=== PATIENT | female | born 2000 | race African-American/Black ===

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

== ENCOUNTER 2019-02-10 16:03 | Emergency (ER) | payer OTHER, SELFPAY ==
--- OUTSIDE RECORDS SUMMARY | 2019-02-10 16:04 | XMS REPORT ---
:2000 Author Organization [facility] Address [address] [place] [address] Dr. Motley [address] [place] [id number] Care Team Providers Name Role Phone Unavailable Unavailable Unavailable Problems This patient has no known problems. Allergies, Adverse Reactions, Alerts This patient has no known allergies or adverse reactions. Medications This patient has no known medications.
--- NOTE | 2019-02-10 16:46 | ER ---
Nurse's Notes [facility] Name: Danitza Noguera Age: 18 yrs Sex: Female : 2000 Arrival Date: 02/10/2019 Time: 16:04 Bed 14 Private MD: Diagnosis: Otitis externa Presentation: 02/10 16:14 Presenting complaint: Patient states: "A couple days ago I got water stuck in my ear aj1 and now it hurts to touch it." Reports pain and decreased hearing to right ear. Transition of care: patient was not received from another setting of care. Onset of symptoms was February 08, 2019. Risk Assessment: Do you want to hurt yourself or someone else? Patient reports no desire to harm self or others. Initial Sepsis Screen: Does the patient meet any 2 criteria? No. Patient's initial sepsis screen is negative. Does the patient have a suspected source of infection? No. Patient's initial sepsis screen is negative. Care prior to arrival: None. 16:14 Method Of Arrival: Ambulatory aj 16:14 Acuity: NORBERTO 4 aj1 Triage Assessment: 16:16 General: Appears in no apparent distress. comfortable, Behavior is calm, cooperative, aj1 appropriate for age. Pain: Complains of pain in right ear Pain currently is 9 out of 10 on a pain scale. EENT: Reports ear pain. Neuro: Level of Consciousness is awake, alert, obeys commands. Cardiovascular: Patient's skin is warm and dry. Respiratory: Airway is patent Respiratory effort is even, unlabored, Respiratory pattern is regular, symmetrical. 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 - Social history:: Smoking status: Patient/guardian denies using tobacco. - Ebola Screening: : Patient denies travel to an Ebola-affected area in the 21 days before illness onset. - Family history:: not pertinent. Screenin:43 Abuse screen: Denies threats or abuse. Denies injuries from another. Nutritional rv screening: No deficits noted. Tuberculosis screening: No symptoms or risk factors identified. Fall Risk None identified. Assessment: 16:40 General: Appears in no apparent distress. comfortable, Behavior is calm, cooperative. rv Pain: Complains of pain in right lower quadrant. Neuro: Level of Consciousness is awake, alert, obeys commands, Oriented to person, place, time, situation. Cardiovascular: Patient's skin is warm and dry. Respiratory: Airway is patent. GI: Abdomen is flat, Reports lower abdominal pain. : No signs and/or symptoms were reported regarding the genitourinary system. EENT: No signs and/or symptoms were reported regarding the EENT system. Derm: Skin is intact. Musculoskeletal: No signs and/or symptoms reported regarding the musculoskeletal system. 16:48 Reassessment: I agree with the above assessment. Bed in low, locked position. Call rb1 light within reach. 17:10 Reassessment: Patient appears in no apparent distress at this time. No changes from rb1 previously documented assessment. Vital Signs: 16:16 BP 122 / 75; Pulse 75; Resp 18; Temp 98.2; Pulse Ox 99% on R/A; Weight 99.79 kg (R); aj1 Height 5 ft. 5 in. (165.10 cm) (R); Pain 9/10; 17:15 BP 121 / 75; Pulse 72; Resp 16; Temp 98.2(O); Pulse Ox 100% on R/A; Pain 9/10; rb1 16:16 Body Mass Index 36.61 (99.79 kg, 165.10 cm) aj1 ED Course: 16:04 Patient arrived in ED. as 16:13 Goyo Amezcua MD is Attending Physician. bernardino 16:15 Triage completed. aj1 16:16 Arm band placed on Patient placed in an exam room. aj1 16:20 Luiz Ojeda RN is Primary Nurse. rv 16:43 Patient has correct armband on for positive identification. Placed in gown. Bed in low rv position. Call light in reach. Side rails up X 1. Adult w/ patient. Pulse ox on. NIBP on. 17:15 No provider procedures requiring assistance completed. Patient did not have IV access rb1 during this emergency room visit. Administered Medications: 17:04 Drug: Everson 10 mg-325 mg 1 tabs Route: PO; rb1 17:15 Follow up: Response: Medication administered at discharge. rb1 17:05 Drug: Bactrim (160 mg-800 mg (DS) 1 tablet Route: PO; rb1 17:15 Follow up: Response: Medication administered at discharge. rb1 Outcome: 16:46 Discharge ordered by . bernardino 17:15 Patient left the ED. rb1 17:15 Discharged to home ambulatory, with family. rb1 17:15 Condition: stable 17:15 Discharge instructions given to patient, Instructed on discharge instructions, follow up and referral plans. medication usage, Demonstrated understanding of instructions, follow-up care, medications, Prescriptions given X 3. Signatures: Tyra Watkins RN RN aj1 Goyo Amezcua MD MD cha Martinez, Amelia as Barber, Rebecca, RN RN rb1 Luiz Ojeda RN RN rv Corrections: (The following items were deleted from the chart) 17:28 17:26 Patient left the ED. rb1 rb1
--- NOTE | 2019-02-10 16:47 | EDPHYS ---
Physician Documentation [facility] Name: Danitza Noguera Age: 18 yrs Sex: Female : 2000 Arrival Date: 02/10/2019 Time: 16:04 Bed 14 Private MD: ED Physician Goyo Amezcua HPI: 02/10 16:41 This 18 yrs old Black Female presents to ER via Ambulatory with complaints of Ear Pain. bernardino 16:41 The patient presents with drainage, pain, swelling, tenderness. The complaints affect bernardino the right ear. Onset: The symptoms/episode began/occurred 3 day(s) ago. Modifying factors: The symptoms are alleviated by covering ear, the symptoms are aggravated by pulling on ears, touching. Associated signs and symptoms: The patient has no apparent associated signs or symptoms. Severity of symptoms: At their worst the symptoms were moderate in the emergency department the symptoms are unchanged. The patient has not experienced similar symptoms in the past. 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 - Social history:: Smoking status: Patient/guardian denies using tobacco. - Ebola Screening: : Patient denies travel to an Ebola-affected area in the 21 days before illness onset. - Family history:: not pertinent. ROS: 16:41 Constitutional: Negative for fever, chills, and weight loss, Eyes: Negative for injury, bernardino pain, redness, and discharge, Neck: Negative for injury, pain, and swelling, Cardiovascular: Negative for chest pain, palpitations, and edema, Respiratory: Negative for shortness of breath, cough, wheezing, and pleuritic chest pain, Abdomen/GI: Negative for abdominal pain, nausea, vomiting, diarrhea, and constipation, Back: Negative for injury and pain, : Negative for injury, bleeding, discharge, and swelling, MS/Extremity: Negative for injury and deformity, Skin: Negative for injury, rash, and discoloration, Neuro: Negative for headache, weakness, numbness, tingling, and seizure, Psych: Negative for depression, anxiety, suicide ideation, homicidal ideation, and hallucinations, Allergy/Immunology: Negative for hives, rash, and allergies, Endocrine: Negative for neck swelling, polydipsia, polyuria, polyphagia, and marked weight changes, Hematologic/Lymphatic: Negative for swollen nodes, abnormal bleeding, and unusual bruising. 16:41 ENT: Positive for ear pain. Exam: 16:41 Constitutional: This is a well developed, well nourished patient who is awake, alert, bernardino and in no acute distress. Head/Face: Normocephalic, atraumatic. Eyes: Pupils equal round and reactive to light, extra-ocular motions intact. Lids and lashes normal. Conjunctiva and sclera are non-icteric and not injected. Cornea within normal limits. Periorbital areas with no swelling, redness, or edema. Neck: Trachea midline, no thyromegaly or masses palpated, and no cervical lymphadenopathy. Supple, full range of motion without nuchal rigidity, or vertebral point tenderness. No Meningismus. Chest/axilla: Normal chest wall appearance and motion. Nontender with no deformity. No lesions are appreciated. Cardiovascular: Regular rate and rhythm with a normal S1 and S2. No gallops, murmurs, or rubs. Normal PMI, no JVD. No pulse deficits. Respiratory: Lungs have equal breath sounds bilaterally, clear to auscultation and percussion. No rales, rhonchi or wheezes noted. No increased work of breathing, no retractions or nasal flaring. Abdomen/GI: Soft, non-tender, with normal bowel sounds. No distension or tympany. No guarding or rebound. No evidence of tenderness throughout. Skin: Warm, dry with normal turgor. Normal color with no rashes, no lesions, and no evidence of cellulitis. MS/ Extremity: Pulses equal, no cyanosis. Neurovascular intact. Full, normal range of motion. Neuro: Awake and alert, GCS 15, oriented to person, place, time, and situation. Cranial nerves II-XII grossly intact. Motor strength 5/5 in all extremities. Sensory grossly intact. Cerebellar exam normal. Normal gait. Psych: Awake, alert, with orientation to person, place and time. Behavior, mood, and affect are within normal limits. 16:41 ENT: Ear canal(s): swelling, that is minimal, that is moderate, TM's: are normal. Vital Signs: 16:16 BP 122 / 75; Pulse 75; Resp 18; Temp 98.2; Pulse Ox 99% on R/A; Weight 99.79 kg (R); aj1 Height 5 ft. 5 in. (165.10 cm) (R); Pain 9/10; 17:15 BP 121 / 75; Pulse 72; Resp 16; Temp 98.2(O); Pulse Ox 100% on R/A; Pain 9/10; rb1 16:16 Body Mass Index 36.61 (99.79 kg, 165.10 cm) aj1 MDM: 16:29 Patient medically screened. bernardino 16:45 Data reviewed: vital signs, nurses notes. bernardino 17:35 ED course: ciprodex changed to cortisporin otic. snw Administered Medications: 17:04 Drug: Gillette 10 mg-325 mg 1 tabs Route: PO; rb1 17:15 Follow up: Response: Medication administered at discharge. rb1 17:05 Drug: Bactrim (160 mg-800 mg (DS) 1 tablet Route: PO; rb1 17:15 Follow up: Response: Medication administered at discharge. rb1 Disposition: 02/11 11:11 Co-signature as Attending Physician, Goyo Amezcua MD I agree with the assessment and [facility] plan of care. Disposition: 02/10/19 16:46 Discharged to Home. Impression: Otitis externa. - Condition is Stable. - Discharge Instructions: Otitis Externa, Otitis Externa, [id number]. - Prescriptions for Ciprodex 0.3- 0.1 % Otic drops,suspension - instill 4 drop by OTIC route every 12 hours for 7 days; 10 milliliter. Tylenol- Codeine #3 300-30 mg Oral Tablet - take 2 tablets by ORAL route every 6 hours As needed; 26 tablet. Bactrim DS 800- 160 mg Oral Tablet - take 1 tablet by ORAL route every 12 hours for 10 days; 20 tablet. - Medication Reconciliation Form, Thank You Letter, Antibiotic Education, Prescription Opioid Use, Work release form form. - Follow up: Private Physician; When: 2 - 3 days; Reason: Recheck today's complaints, Continuance of care, Re-evaluation by your physician. - Problem is new. - Symptoms have improved. Signatures: Tyra Watkins RN RN aj1 Goyo Amezcua MD MD cha Therrien, Shelly, SHOP CLERK-C SHOP CLERK-Csnw Molly Ramirez, RN RN rb1 Corrections: (The following items were deleted from the chart) 02/10 17:26 16:46 02/10/2019 16:46 Discharged to Home. Impression: Otitis externa. Condition is rb1 Stable. Forms are Medication Reconciliation Form, Thank You Letter, Antibiotic Education, Prescription Opioid Use. Follow up: Private Physician; When: 2 - 3 days; Reason: Recheck today's complaints, Continuance of care, Re-evaluation by your physician. Problem is new. Symptoms have improved. bernardino
[2019-02-10] MEDS ORDERED: HYDROCODONE/APAP 10/325 TAB ONE (17:12)
[2019-02-10] MEDS ORDERED: SMZ./TMP. 800/160 MG TABLET ONE (17:13)
[2019-02-10 17:33] VITALS: BP 122/75; TEMP 98.2; O2SAT 99
== END 2019-02-10 17:26 | disposition home or self-care (01) ==
LOC: ER 16:03
DX: H60.91 Unspecified otitis externa, right ear (principal)
CPT/HCPCS: 99283

== ENCOUNTER 2019-03-29 15:58 | Emergency (ER) | payer SELFPAY ==
--- OUTSIDE RECORDS SUMMARY | 2019-03-29 16:00 | XMS REPORT | Summary of Care ---
:2000 Author Organization [facility] Address [address] [place] [id number] Care Team Providers Name Role Phone Iram Green [facility] Primary Care Provider Breanne Joslyn L Insurance Hmo Reason for Visit Reason Comments NURSE VISIT Encounter Details Date Type Department Care Team Description 02/12/2019 [facility], [facility] [address] [place] [address] Need for HPV Emily [facility], [facility] [address] [place] [address] Allergies No Known Allergiesdocumented as of this encounter (statuses as of 02/12/2019) Medications Medication Sig Dispensed Refills Start Date End Date Status CITRANATAL 90 DHA, TAKE 1 TABLET AND 1 6 12/20/2017 Active ALGAL OIL, 90 mg CAPSULE BY MOUTH iron-1 mg -50 EVERY DAY mg-300 mg combo pack HYDROcodone-acetami Take 1 tablet by 20 tablet 0 04/04/2018 Active nophen 5-325 mg mouth every 6 (six) tablet hours as needed for Pain (scale 4-6) (If uncontrolled by Ibuprofen). Hospital, Clinic, or Other Ordered Dose Route Frequency Start Date End Date Status Facility Administered Medication medroxyPROGESTERone 150 mg IM [id number] 05/18/2018 04/19/2019 Active (DEPO-PROVERA) injection 150 mgIndications: control counseling documented as of this encounter (statuses as of 02/12/2019) Active Problems Patient Care Coordination Note iol 04-02-18 at 7pm Problem Noted Date Well woman exam 05/18/2018 Contraceptive management 05/18/2018 Obesity (BMI 30-39.9) 03/14/2018 Family history of ASD (atrial septal defect) 12/13/2017 documented as of this encounter (statuses as of 02/12/2019) Resolved Problems Problem Noted Date Resolved Date Routine follow-up 04/25/2018 05/18/2018 S/P 04/04/2018 05/18/2018 Examination of participant in clinical trial 04/04/2018 04/25/2018 Overview: PACt 40 weeks gestation of 04/02/2018 04/25/2018 GBS (group B streptococcus) infection 03/13/2018 04/02/2018 Overview: Address in labor and Delivery. Group B Streptococcus urinary tract infection affecting 01/26/2018 04/25/2018 in third trimester Sickle cell trait 12/16/2017 04/25/2018 Overweight (BMI 25.0-29.9) 12/13/2017 04/25/2018 Supervision of high risk , antepartum 12/13/2017 04/25/2018 Insufficient antepartum care 12/13/2017 04/25/2018 documented as of this encounter (statuses as of 02/12/2019) Immunizations Name Administration Dates Next Due HPV9 02/12/2019, 05/18/2018, 05/11/2018 (Deferred: Contraindication - vaccine not given ), 04/04/2018 Tdap 01/09/2018 documented as of this encounter Social History Tobacco Use Types Packs/Day Years Used Date Never Smoker Smokeless Tobacco: Never Used Alcohol Use Drinks/Week oz/Week Comments No Sex Assigned at Date Recorded Not on file Job Start Date Occupation Industry Not on file Not on file Not on file Travel History Travel Start Travel End No recent travel history available. documented as of this encounter Last Filed Vital Signs Vital Sign Reading Time Taken Comments Blood Pressure 116/70 02/12/2019 9:40 AM CDT Pulse 60 02/12/2019 9:40 AM CDT Temperature 37.2 C (98.9 F) 02/12/2019 9:40 AM CDT Respiratory Rate 18 02/12/2019 9:40 AM CDT Oxygen Saturation - - Inhaled Oxygen Concentration - - Weight 100 kg (220 lb 9 oz) 02/12/2019 9:40 AM CDT Height 165.1 cm (5' 5") 02/12/2019 9:40 AM CDT Body Mass Index 36.7 02/12/2019 9:40 AM CDT documented in this encounter Patient Instructions Patient InstructionsFranca Elder LVN - 02/12/2019 8:45 AM CDT Understanding Human Papillomavirus (HPV) Human papillomavirus (HPV) is a virus that causes warts. It can be hard to detect, so many people never even know they have it. Some strains (types) of HPV may cause warts on the hands, legs, or other parts of the body. These can spread from person to person. Other strains of HPV cause wartsin the genital area. Of these, a few strains can lead to cancer in the area where the uterus and vagina meet (the cervix) and the genitals, as well as some other places. Treating genital forms of HPV now can help prevent serious health problems in the future. How was I infected? HPV is passed from person to person through contact with infected skin. Everyone with HPV has a different experience. Some people notice genital warts ( condyloma) within a few months of exposure. In other people, warts take years to appear or may never appear. This makes it almost impossible to know when or by whom you were infected. How warts form HPV lives inside skin and mucous membrane (including in the mouth and vagina). The virus can make skin cells reproduce more often than they should. These extra skin cells build up into warts. 1. HPV invades the skin. 2. DNA from the virus enters skin cells. 3. HPV causes infected skin cells to multiply and form warts. 4. The virus sheds, allowing it to be passed to others. Date Last Reviewed: 07/18/201619994701-7055 The [employer]. [address] [place] [address], [place] [address]. All rights reserved. This information is not intended as a substitute for professional medical care. Always follow your healthcare professional's instructions. documented in this encounter Progress Notes Franca Elder LVN - 02/12/2019 8:45 AM CDTPt here for HPV #3 VIS given and reviewed with patient. Vaccine given to left deltoid via IM, pt tolerated well. The site was cleaned with alcohol and bandage was applied. Pt verbalized understanding. documented in this encounter Plan of Treatment Health Maintenance Due Date Last Done Comments PNEUMOCOCCAL 0-64 YEARS 10/07/2005 COMBINED SERIES (1 of 3 - PCV13) MENINGOCOCCAL B VACCINES (1 of 10/07/2009 2 - Risk Bexsero 2-dose series) HPV VACCINES (3 - Female 10/02/2018 05/18/2018, 3-dose series) 04/04/2018 INFLUENZA VACCINE 03/18/2019 CHLAMYDIA SCREENING 05/18/2019 05/18/2018, 03/09/2018, 12/13/2017 DTaP,Tdap,and Td Vaccines (2 - 01/10/2028 01/09/2018 Td) MENINGOCOCCAL VACCINE Aged Out No longer eligible based on patient's age to complete this topic documented as of this encounter Procedures Procedure Name Priority Date/Time Associated Diagnosis Comments GARDASIL 9 (HPV 9V) Routine 02/12/2019 9:46 AM Need for HPV VACCINE CDT vaccination documented in this encounter Results Not on filedocumented in this encounter Visit Diagnoses Diagnosis Need for HPV vaccination Need for prophylactic vaccination and inoculation against other viral diseases documented in this encounter Advance Directives Name Relationship Healthcare Agent Relationship Communication Brad Kramer Mother Primary healthcare agent [phone]
--- OUTSIDE RECORDS SUMMARY | 2019-03-29 16:00 | XMS REPORT | Summary of Care ---
:2000 Author Organization [facility] Address [address] [place] [address] Care Team Providers Name Role Phone Iram Green [facility] Primary Care Provider Breanne Joslyn L Insurance Hmo Reason for Visit Reason Comments NURSE VISIT Encounter Details Date Type Department Care Team Description 02/12/2019 [facility] [address] [place] [address] Need for HPV [facility], [facility] [address] [place] [address] Allergies No Known Allergiesdocumented as [...] Facility Administered Medication medroxyPROGESTERone 150 mg IM [id number] 05/18/2018 04/19/2019 Active (DEPO-PROVERA) injection 150 mgIndications: [...] be passed to others. Date Last Reviewed: 07/18/201619997357-1154 The [employer]. [address] [place] [address], [place] [address]. All rights reserved. This information is not [...] documented in this encounter Plan of Treatment Date Type Specialty Care Team Description 05/21/2019 Office Visit [facility] Iram Green, CNP [address] [place] [address] [phone] Health Maintenance Due Date Last Done Comments [...] Communication Brad Kramer Mother Primary healthcare agent [phone]
--- OUTSIDE RECORDS SUMMARY | 2019-03-29 16:00 | XMS REPORT ---
:2000 Author Organization [facility] Address [address] [place] [address] Dr. Motley [address] [place] [address] Care Team Providers Name Role Phone Unavailable Unavailable Unavailable Problems This patient has no known problems. Allergies, Adverse Reactions, Alerts This patient has no known allergies or adverse reactions. Medications This patient has no known medications.
--- OUTSIDE RECORDS SUMMARY | 2019-03-29 16:00 | XMS REPORT | Summary of Care ---
:2000 Author Organization [facility] Address [address] [place] [address] Care Team Providers Name Role Phone Iram Green [facility] Primary Care Provider Joslyn Raymundo Insurance Hmo Encounter Details Date Type Department Care Team Description 02/12/2019 Orders Only [facility] Doctor Unassigned, No [address] [place] [address] [address] [place] [address] Allergies No Known Allergiesdocumented as of this [...] Facility Administered Medication medroxyPROGESTERone 150 mg IM [id number] 05/18/2018 04/19/2019 Active (DEPO-PROVERA) injection 150 mgIndications: control counseling documented as of this encounter (statuses as of 02/12/2019) Active Problems Patient Care Coordination Note iol 18 at 7pm Problem Noted Date Well woman [...] Immunizations Name Administration Dates Next Due HPV9 05/18/2018, 05/11/2018 (Deferred: Contraindication - vaccine not [...] of this encounter Last Filed Vital Signs Not on filedocumented in this encounter Plan of Treatment Health [...] Procedure Name Priority Date/Time Associated Diagnosis Comments ASSIGNMENT OF BENEFITS Routine 02/12/2019 9:04 AM CDT documented in this encounter Results Not on filedocumented in this encounter Advance Directives Name Relationship Healthcare Agent Relationship Communication Brad Kramer Mother Primary healthcare agent [phone]
[2019-03-29 17:10] LABS: Urine Blood NEGATIVE (NEG); Urine Glucose NEGATIVE (NEG); Urine Protein NEGATIVE (NEG)
[2019-03-29 17:29] LABS: Barbiturates NEGATIVE (NEGATIVE); Benzodiazepines NEGATIVE (NEGATIVE); Cocaine NEGATIVE (NEGATIVE); METHAMPHETAM NEGATIVE (NEGATIVE); Methadone NEGATIVE (NEGATIVE); Opiates NEGATIVE (NEGATIVE); Phencyclidine NEGATIVE (NEGATIVE); THC Cannibis NEGATIVE (NEGATIVE)
[2019-03-29 17:32] LABS: Absolute Lymphocytes (CBC) 1.1 K/uL (0.7-4.9); Basophils % 0.5 % (0-1.3); Hematocrit 36.1 % (36.0-45.0); MPV 8.8 fL (7.6-11.3); RBC Red Blood Cell Count 4.23 M/uL (3.86-4.86)
[2019-03-29 17:36] LABS: Protime INR 1.19
[2019-03-29 17:51] LABS: ALT/SGPT 18 U/L (12-78); AST/SGOT 10 U/L (15-37); Albumin 4.2 g/dL (3.4-5.0); Alkaline Phosphatase 75 U/L (45-117); BUN Blood Urea Nitrogen 6 mg/dL (7-18); Bicarbonate 24 mmol/L (21-32); Bilirubin Direct 0.2 mg/dL (0-0.2); Bilirubin Total 0.5 mg/dL (0.2-1.0); Glucose Level 88 mg/dL (74-106); Potassium 3.8 mmol/L (3.5-5.1); Protein, Total 8.1 g/dL (6.4-8.2); Sodium Level 143 mmol/L (136-145)
--- NOTE | 2019-03-29 19:00 | ER ---
Nurse's Notes [facility] Name: Danitza Noguera Age: 18 yrs Sex: Female : 2000 Arrival Date: 03/29/2019 Time: 16:12 Bed 13 Private MD: Diagnosis: Anxiety disorder, unspecified;Irritability and anger Presentation: 03/29 16:05 Presenting complaint: EMS states: Pt. has been depressed and has been thinking about rb1 suicide off and on for the last three months. Today she put an unknown amount of Hydralazine 50 mg in her mouth but spit them out. However, when she spit them out, some of the capsules had opened. Vital signs have been stable. She is currently voluntary. Mental health officer at the bedside. Transition of care: patient was not received from another setting of care. Onset of symptoms was March 29, 2019. Risk Assessment: Do you want to hurt yourself or someone else? Patient reports no desire to harm self or others. Initial Sepsis Screen: Does the patient meet any 2 criteria? No. Patient's initial sepsis screen is negative. Does the patient have a suspected source of infection? No. Patient's initial sepsis screen is negative. Care prior to arrival: None. 16:05 Method Of Arrival: EMS: [facility] 16:05 Acuity: NORBERTO 3 rb1 Triage Assessment: 16:05 General: Appears in no apparent distress. comfortable, Behavior is calm, cooperative, rb1 Denies fever, feeling ill, Pt. denies having a plan at this time. Pt. reports that she didn't actually take the pills, she put them in her mouth and spit them out.. Pain: Denies pain. Neuro: Level of Consciousness is awake, alert, obeys commands, Oriented to person, place, time, situation. Cardiovascular: Capillary refill < 3 seconds is brisk in bilateral fingers. Respiratory: Airway is patent Respiratory effort is even, unlabored, Respiratory pattern is regular, symmetrical. GI: No signs and/or symptoms were reported involving the gastrointestinal system. : No signs and/or symptoms were reported regarding the genitourinary system. Derm: Skin is dry, Skin is normal, Skin temperature is warm. 16:05 Musculoskeletal: Range of motion: intact in all extremities. 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 - Social history:: Smoking status: Patient/guardian denies using tobacco. - Ebola Screening: : Patient negative for fever greater than or equal to 101.5 degrees Fahrenheit, and additional compatible Ebola Virus Disease symptoms. Screenin:05 Abuse screen: Denies threats or abuse. Nutritional screening: No deficits noted. rb1 Tuberculosis screening: No symptoms or risk factors identified. Fall Risk None identified. Assessment: 16:05 General: See triage assessment. rb1 17:00 Reassessment: Patient appears in no apparent distress at this time. No changes from [facility] previously documented assessment. Family at bedside. 18:00 Reassessment: Patient appears in no apparent distress at this time. Patient and/or rb1 family updated on plan of care and expected duration. Pain level reassessed. Patient is alert, oriented x 3, equal unlabored respirations, skin warm/dry/pink. Patient denies pain at this time. 18:33 Reassessment: [facility] at pt. bedside. rb1 19:00 Reassessment: Patient appears in no apparent distress at this time. No changes from [facility] previously documented assessment. Vital Signs: 16:05 BP 123 / 86; Pulse 74; Resp 16; Temp 98.6(O); Pulse Ox 99% on R/A; Weight 92.99 kg (R); rb1 Height 5 ft. 5 in. (165.10 cm) (R); Pain 0/10; 17:00 BP 121 / 85; Pulse 71; Resp 16; Temp 98.0(O); Pulse Ox 99% ; Pain 0/10; rb1 18:00 BP 126 / 88; Pulse 67; Resp 15; Temp 98.1(O); Pulse Ox 99% on R/A; rb1 19:00 BP 130 / 90; Pulse 90; Resp 17; Temp 98.2(O); Pulse Ox 99% on R/A; Pain 0/10; rb1 16:05 Body Mass Index 34.11 (92.99 kg, 165.10 cm) [facility] ED Course: 16:05 Arm band placed on right wrist. rb1 16:05 Patient has correct armband on for positive identification. Bed in low position. Call rb1 light in reach. Side rails up X 1. Pulse ox on. NIBP on. 16:12 Patient arrived in ED. bd 16:13 Josephine David FNP-C is PHCP. snw 16:13 Elke Hannon MD is Attending Physician. snw 16:15 Josephine David FNP-C is PHCP. snw 16:15 EKG done, by low voltage technician. reviewed by Yusuf HECTOR. 3 16:21 Molly Ramirez, RN is Primary Nurse. rb1 16:27 Triage completed. rb1 16:50 Urine collected: clean catch specimen, clear. dh3 17:15 Inserted saline lock: 22 gauge in right antecubital area, using aseptic technique. rb1 Blood collected. 17:43 contacted [facility] to have a screener come to evaluate patient. bd 19:17 No provider procedures requiring assistance completed. IV discontinued, intact, rb1 bleeding controlled, No redness/swelling at site. Pressure dressing applied. Administered Medications: No medications were administered Outcome: 18:59 Discharge ordered by . snw 19:17 Patient left the ED. rb1 19:17 Discharged to home ambulatory, with family. rb1 19:17 Condition: stable 19:17 Discharge instructions given to patient, Instructed on discharge instructions, follow up and referral plans. Demonstrated understanding of instructions, follow-up care, Prescriptions given X none Signatures: Emily Granado bd Josephine David FNP-C WOOD GRINDER OPERATOR-Csnw Molly Ramirez, RN RN [facility] Joyce Morales 3 Gladys Elizabeth 3
--- NOTE | 2019-03-29 19:00 | EDPHYS ---
Physician Documentation [facility] Name: Danitza Noguera Age: 18 yrs Sex: Female : 2000 Arrival Date: 03/29/2019 Time: 16:12 Bed 13 Private MD: ED Physician Elke Hannon HPI: 03/29 16:43 This 18 yrs old Black Female presents to ER via EMS with complaints of angry outburst, snw Pt placed pills in her mouth and then spit them out. 16:43 The patient presents to the emergency department with a history of a suicide gesture, snw where the patient took pills/medications, but then spit them out. Onset: The symptoms/episode began/occurred suddenly, just prior to arrival. Past psychiatric history: Prior diagnosis: no previous psychiatric diagnosis known, Psychiatric medications include: none, the patient has not had a prior suicide gesture, the patient does not have a previous inpatient psychiatric history. Associated signs and symptoms: Pertinent positives; anger. Severity of symptoms: At their worst the symptoms were severe today, in the emergency department the symptoms have improved. pt had trouble controlling her anger toward her Child's Father. The patient has not recently seen a physician. 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 - Social history:: Smoking status: Patient/guardian denies using tobacco. - Ebola Screening: : Patient negative for fever greater than or equal to 101.5 degrees Fahrenheit, and additional compatible Ebola Virus Disease symptoms. ROS: 16:42 Constitutional: Negative for fever, chills, and weight loss, Eyes: Negative for injury, snw pain, redness, and discharge, ENT: Negative for injury, pain, and discharge, Neck: Negative for injury, pain, and swelling, Cardiovascular: Negative for chest pain, palpitations, and edema, Respiratory: Negative for shortness of breath, cough, wheezing, and pleuritic chest pain, Abdomen/GI: Negative for abdominal pain, nausea, vomiting, diarrhea, and constipation, Back: Negative for injury and pain, : Negative for injury, bleeding, discharge, and swelling, MS/Extremity: Negative for injury and deformity, Skin: Negative for injury, rash, and discoloration, Neuro: Negative for headache, weakness, numbness, tingling, and seizure. 16:42 Psych: Positive for Anger problems. Pt states she gets overwhelmed and lashes out when she gets so mad.. Exam: 16:39 Constitutional: This is a well developed, well nourished patient who is awake, alert, snw and in no acute distress. Head/Face: Normocephalic, atraumatic. Eyes: Pupils equal round and reactive to light, extra-ocular motions intact. Lids and lashes normal. Conjunctiva and sclera are non-icteric and not injected. Cornea within normal limits. Periorbital areas with no swelling, redness, or edema. ENT: Nares patent. No nasal discharge, no septal abnormalities noted. Tympanic membranes are normal and external auditory canals are clear. Oropharynx with no redness, swelling, or masses, exudates, or evidence of obstruction, uvula midline. Mucous membranes moist. Neck: Trachea midline, no thyromegaly or masses palpated, and no cervical lymphadenopathy. Supple, full range of motion without nuchal rigidity, or vertebral point tenderness. No Meningismus. Chest/axilla: Normal chest wall appearance and motion. Nontender with no deformity. No lesions are appreciated. Cardiovascular: Regular rate and rhythm with a normal S1 and S2. No gallops, murmurs, or rubs. Normal PMI, no JVD. No pulse deficits. Respiratory: Lungs have equal breath sounds bilaterally, clear to auscultation and percussion. No rales, rhonchi or wheezes noted. No increased work of breathing, no retractions or nasal flaring. Abdomen/GI: Soft, non-tender, with normal bowel sounds. No distension or tympany. No guarding or rebound. No evidence of tenderness throughout. Back: No spinal tenderness. No costovertebral tenderness. Full range of motion. Skin: Warm, dry with normal turgor. Normal color with no rashes, no lesions, and no evidence of cellulitis. MS/ Extremity: Pulses equal, no cyanosis. Neurovascular intact. Full, normal range of motion. Neuro: Awake and alert, GCS 15, oriented to person, place, time, and situation. Cranial nerves II-XII grossly intact. Motor strength 5/5 in all extremities. Sensory grossly intact. Cerebellar exam normal. Normal gait. 16:39 Psych: Behavior/mood is pleasant, cooperative, appropriate for age, Affect is calm, Oriented to person, place, time, Patient has no thoughts/intents to harm self or others. Judgement / Insight is pt states she becomes angry and lashes out. Pt has plans for college and to play softball. Pt has a young Son. Most of her anger she says results from her relationship with the child's Father. She denies SI, HI but states she just wants someone to talk to. . Vital Signs: 16:05 BP 123 / 86; Pulse 74; Resp 16; Temp 98.6(O); Pulse Ox 99% on R/A; Weight 92.99 kg (R); rb1 Height 5 ft. 5 in. (165.10 cm) (R); Pain 0/10; 17:00 BP 121 / 85; Pulse 71; Resp 16; Temp 98.0(O); Pulse Ox 99% ; Pain 0/10; rb1 18:00 BP 126 / 88; Pulse 67; Resp 15; Temp 98.1(O); Pulse Ox 99% on R/A; rb1 19:00 BP 130 / 90; Pulse 90; Resp 17; Temp 98.2(O); Pulse Ox 99% on R/A; Pain 0/10; rb1 16:05 Body Mass Index 34.11 (92.99 kg, 165.10 cm) rb1 MDM: 16:14 Patient medically screened. snw 18:10 Data reviewed: vital signs, nurses notes. Data interpreted: Pulse oximetry: on room air snw is 99 %. Interpretation: normal. Counseling: I had a detailed discussion with the patient and/or guardian regarding: the historical points, exam findings, and any diagnostic results supporting the discharge/admit diagnosis, the presence of at least one elevated blood pressure reading (>120/80) during this emergency department visit, lab results, the need for outpatient follow up, for definitive care. Other consultation: [facility] here for evaluation. 03/29 16:54 Order name: Acetaminophen; Complete Time: 18:10 snw 03/29 16:54 Order name: Basic Metabolic Panel; Complete Time: 18:10 snw 03/29 16:54 Order name: CBC with Diff; Complete Time: 18:10 [facility] 03/29 16:54 Order name: ETOH Level; Complete Time: 18:10 [facility] 03/29 16:54 Order name: Hepatic Function; Complete Time: 18:10 [facility] 03/29 16:54 Order name: PT-INR; Complete Time: 18:10 [facility] 03/29 16:54 Order name: Urine Test (obtain specimen); Complete Time: 17:05 [facility] 03/29 16:54 Order name: Ptt, Activated; Complete Time: 18:10 w 03/29 16:54 Order name: Salicylate; Complete Time: 18:10 [facility] 03/29 16:54 Order name: Urine Drug Screen; Complete Time: 17:37 [facility] 03/29 16:54 Order name: EKG; Complete Time: 16:55 [facility] 03/29 16:54 Order name: EKG - Nurse/Tech; Complete Time: 17:05 [facility] 03/29 17:05 Order name: Urine Dipstick--Ancillary (enter results); Complete Time: 17:18 03/29 17:05 Order name: Urine --Ancillary (enter results); Complete Time: 17:18 03/29 16:54 Order name: IV Saline Lock; Complete Time: 19:06 [facility] 03/29 16:54 Order name: Labs collected and sent; Complete Time: 19:06 [facility] 03/29 16:54 Order name: Urine Dipstick-Ancillary (obtain specimen); Complete Time: 17:05 snw Administered Medications: No medications were administered Disposition: 03/29/19 18:59 Discharged to Home. Impression: Anxiety disorder, unspecified, Irritability and anger. - Condition is Stable. - Discharge Instructions: Tips for Managing Your Anger, Panic Attacks, [id number], Generalized Anxiety Disorder. - Medication Reconciliation Form, Thank You Letter, Antibiotic Education, Prescription Opioid Use form. - Follow up: Private Physician; When: As scheduled; Reason: Recheck today's complaints, Continuance of care. Addendum: 04/02/2019 15:55 Co-signature as Attending Physician, Elke Hannon MD. m a2 Signatures: Dispatcher MedGood Shepherd Specialty HospitalJosephine Rivas, SUPERVISOR METAL CANS-C SUPERVISOR METAL CANS-Csnw Molly Ramirez, RN RN rb1 Riddhi, MD RADHA Bedoya ma2 Corrections: (The following items were deleted from the chart) 03/29 19:17 18:59 03/29/2019 18:59 Discharged to Home. Impression: Anxiety disorder, unspecified; rb1 Irritability and anger. Condition is Stable. Forms are Medication Reconciliation Form, Thank You Letter, Antibiotic Education, Prescription Opioid Use. Follow up: Private Physician; When: As scheduled; Reason: Recheck today's complaints, Continuance of care. snw
[2019-03-29 20:45] VITALS: BP 123/86; TEMP 98.6; O2SAT 99
--- NOTE | 2019-03-30 07:40 | EKG ---
Test Date: 2019-03-29 Test Time: 16:03:59 [place]: ANIRUDH MEASUREMENT RESULTS: Intervals: Rate: 71 VA: 128 QRSD: 84 QT: 340 QTc: 369 [place]: P: 72 VA: 128 QRS: 28 T: 29 INTERPRETIVE STATEMENTS: Normal sinus rhythm with sinus arrhythmia Normal ECG Compared to ECG 04/12/2016 20:36:35 Sinus bradycardia no longer present Electronically Signed On 03-30-19 07:38:00 CDT by James Bradshaw
== END 2019-03-29 19:17 | disposition home or self-care (01) ==
LOC: ER 15:58
DX: F41.9 Anxiety disorder, unspecified (principal); R45.4 Irritability and anger
CPT/HCPCS: 36415; 80048; 80076; 80307; 80320; 80329; 81003; 81025; 85025; 85610; 85730; 93005; 99284

== ENCOUNTER 2019-09-14 23:52 | Emergency (ER) | payer SELFPAY ==
--- OUTSIDE RECORDS SUMMARY | 2019-09-14 23:55 | XMS REPORT ---
:2000 [facility] Address [address] [place] [address] Dr. Motley [address] [place] [id number] Care Team Providers Name Role Phone Unavailable Unavailable Unavailable Problems This patient has no known problems. Allergies, Adverse Reactions, Alerts This patient has no known allergies or adverse reactions. Medications This patient has no known medications.
[2019-09-15] MEDS ORDERED: TETRACAINE HCL 0.5% 4ML OPTH ONE (00:59)
[2019-09-15] MEDS ORDERED: FLUORESCEIN SODIUM 1 MG/WRAP ONE (01:04)
--- NOTE | 2019-09-15 01:10 | EDPHYS ---
Physician Documentation [facility] Name: Danitza Noguera Age: 18 yrs Sex: Female : 2000 Arrival Date: 09/14/2019 Time: 23:53 Bed 14 Private MD: ED Physician Nadeem Castelan HPI: 01:08 This 18 yrs old Black Female presents to ER via Ambulatory with complaints of Flu kb Symptoms, Redness of Eye. 01:08 The patient or guardian reports cough, that is intermittent, described as mild, flu kb symptoms. Onset: The symptoms/episode began/occurred 3 day(s) ago. Severity of symptoms: At their worst the symptoms were mild, moderate, in the emergency department the symptoms are unchanged. Modifying factors: The symptoms are alleviated by nothing, the symptoms are aggravated by nothing. Associated signs and symptoms: Pertinent positives: rhinorrhea, sore throat. The patient has not experienced similar symptoms in the past. The patient has not recently seen a physician. Pt reports flu-like symptoms for 3 days. States her eye started draining and has been red since yesterday. Now her right eye feels like it is starting to get irritated. . Historical: - Allergies: 00:00 No Known Allergies; jd3 - Home Meds: 00:00 None [Active]; jd3 - PMHx: 00:00 None; jd3 - PSHx: 00:00 ; jd3 - Immunization history:: Adult Immunizations up to date. - Social history:: Smoking status: . ROS: 01:05 Constitutional: Negative for fever, chills, and weight loss, Cardiovascular: Negative kb for chest pain, palpitations, and edema, Abdomen/GI: Negative for abdominal pain, nausea, vomiting, diarrhea, and constipation, Back: Negative for injury and pain, : Negative for injury, bleeding, discharge, and swelling, MS/Extremity: Negative for injury and deformity, Skin: Negative for injury, rash, and discoloration, Neuro: Negative for headache, weakness, numbness, tingling, and seizure. 01:05 Eyes: Positive for discharge, foreign body sensation, redness. 01:05 ENT: Positive for rhinorrhea, sinus congestion, sore throat. 01:05 Respiratory: Positive for cough. Exam: 01:05 Constitutional: This is a well developed, well nourished patient who is awake, alert, kb and in no acute distress. Head/Face: Normocephalic, atraumatic. ENT: Nares patent. No nasal discharge, no septal abnormalities noted. Tympanic membranes are normal and external auditory canals are clear. Oropharynx with no redness, swelling, or masses, exudates, or evidence of obstruction, uvula midline. Mucous membranes moist. Neck: Trachea midline, no thyromegaly or masses palpated, and no cervical lymphadenopathy. Supple, full range of motion without nuchal rigidity, or vertebral point tenderness. No Meningismus. Chest/axilla: Normal chest wall appearance and motion. Nontender with no deformity. No lesions are appreciated. Cardiovascular: Regular rate and rhythm with a normal S1 and S2. No gallops, murmurs, or rubs. Normal PMI, no JVD. No pulse deficits. Respiratory: Lungs have equal breath sounds bilaterally, clear to auscultation and percussion. No rales, rhonchi or wheezes noted. No increased work of breathing, no retractions or nasal flaring. Abdomen/GI: Soft, non-tender, with normal bowel sounds. No distension or tympany. No guarding or rebound. No evidence of tenderness throughout. Skin: Warm, dry with normal turgor. Normal color with no rashes, no lesions, and no evidence of cellulitis. MS/ Extremity: Pulses equal, no cyanosis. Neurovascular intact. Full, normal range of motion. Neuro: Awake and alert, GCS 15, oriented to person, place, time, and situation. Cranial nerves II-XII grossly intact. Motor strength 5/5 in all extremities. Sensory grossly intact. Cerebellar exam normal. Normal gait. 01:05 Eyes: Conjunctiva: exudate, bilaterally, injected, bilaterally, left worse than right. 01:18 Eyes: Pupils: equal, round, and reactive to light and accomodation, Extraocular kb movements: intact throughout, Conjunctiva: Corneas: abrasion, is not appreciated, foreign body, is not appreciated, a fluorescein strip employed to appreciate the findings. Vital Signs: 00:00 BP 138 / 85; Pulse 70; Resp 18 S; Temp 98.2(O); Pulse Ox 99% on R/A; Weight 83.01 kg jd3 (R); Height 5 ft. 5 in. (165.10 cm) (R); Pain 1/10; 01:10 BP 125 / 70; Pulse 75; Resp 16; Pulse Ox 99% on R/A; rr5 00:00 Body Mass Index 30.45 (83.01 kg, 165.10 cm) jd3 Visual Acuity: 00:45 Left Eye Visual acuity 20/100, ; Right Eye Visual acuity 20/25, ; Both Eyes Visual rr5 acuity 20/25; Without Lenses; right eye has contact lens, left eye without contact lens MDM: 00:15 Patient medically screened. kb 01:00 Data reviewed: vital signs, nurses notes. Data interpreted: Pulse oximetry: on room air kb is 99 %. Interpretation: normal. 01:07 Counseling: I had a detailed discussion with the patient and/or guardian regarding: the kb historical points, exam findings, and any diagnostic results supporting the discharge/admit diagnosis, lab results, the need for outpatient follow up, a family practitioner, to return to the emergency department if symptoms worsen or persist or if there are any questions or concerns that arise at home. 00:15 Order name: Flu; Complete Time: 01:07 kb 00:15 Order name: Strep; Complete Time: 01:07 kb 00:26 Order name: Visual Acuity; Complete Time: :29 kb 00:26 Order name: Eye Tray; Complete Time: 01:29 kb 01:08 Order name: Throat Culture EDMS 00:26 Order name: Fluoresene Opth strip; Complete Time: 01:29 kb Administered Medications: 01:05 Drug: Tetracaine Drops 0.5 % 1 drops Route: Ophthalmic; Site: both eyes; rr5 01:30 Follow up: Response: No adverse reaction; given by nancy vieyra Disposition: 09/15/19 01:10 Discharged to Home. Impression: Conjunctivitis, Acute upper respiratory infection, unspecified. - Condition is Stable. - Discharge Instructions: Upper Respiratory Infection, Pediatric, Bacterial Conjunctivitis, [id number]. - Prescriptions for Vigamox 0.5 % Ophthalmic Drops - instill 1 drop by OPHTHALMIC route every 8 hours for 7 days; 5 milliliter. - Medication Reconciliation Form, Thank You Letter, Antibiotic Education, Prescription Opioid Use form. - Follow up: Private Physician; When: 2 - 3 days; Reason: Recheck today's complaints, Continuance of care, Re-evaluation by your physician. Follow up: Emergency Department; When: As needed; Reason: Worsening of condition. Addendum: 09/16/2019 02:14 Co-signature as Attending Physician, Nadeem Castelan MD I agree with the assessment and t w4 plan of care. Signatures: Dispatcher [employer] [facility] Nancy Mullins, TRAIN STARTER-C TRAIN STARTER-Ckb Ashvin Hagen, RN RN jd3 Nadeem Castelan MD MD tw4 Nam Merchant, PADMINI RN rr5 Corrections: (The following items were deleted from the chart) 01:30 01:10 09/15/2019 01:10 Discharged to Home. Impression: Conjunctivitis; Acute upper rr5 respiratory infection, unspecified. Condition is Stable. Forms are Medication Reconciliation Form, Thank You Letter, Antibiotic Education, Prescription Opioid Use. Follow up: Private Physician; When: 2 - 3 days; Reason: Recheck today's complaints, Continuance of care, Re-evaluation by your physician. Follow up: Emergency Department; When: As needed; Reason: Worsening of condition. kb
--- NOTE | 2019-09-15 01:10 | ER ---
Nurse's Notes [facility] Name: Danitza Noguera Age: 18 yrs Sex: Female : 2000 Arrival Date: 09/14/2019 Time: 23:53 Bed 14 Private MD: Diagnosis: Conjunctivitis;Acute upper respiratory infection, unspecified Presentation: 09/14 23:57 Chief complaint: Patient states: "For 2 days my left eye has been giving problems and I jd3 am having some flu like symptoms.". Coronavirus screen: The patient has NOT traveled to [place] in the past 14 days. The patient has NOT had contact with known and/or suspected case of Coronavirus. Proceed with normal triage procedures. Ebola Screen: Patient negative for fever greater than or equal to 101.5 degrees Fahrenheit, and additional compatible Ebola Virus Disease symptoms. Initial Sepsis Screen: Does the patient meet any 2 criteria? No. Patient's initial sepsis screen is negative. Does the patient have a suspected source of infection? No. Patient's initial sepsis screen is negative. Risk Assessment: Do you want to hurt yourself or someone else? Patient reports no desire to harm self or others. 23:57 Method Of Arrival: Ambulatory [facility] 23:57 Acuity: NORBERTO 4 jd3 00:15 Onset of symptoms was September 13, 2019. rr5 Historical: - Allergies: 00:00 No Known Allergies; jd3 - Home Meds: 00:00 None [Active]; jd3 - PMHx: 00:00 None; jd3 - PSHx: 00:00 ; jd3 - Immunization history:: Adult Immunizations up to date. - Social history:: Smoking status: . Screenin:15 Abuse screen: Denies threats or abuse. Denies injuries from another. Nutritional rr5 screening: No deficits noted. 00:15 Tuberculosis screening: No symptoms or risk factors identified. Fall Risk None rr5 identified. Assessment: 00:15 General: Appears in no apparent distress. comfortable, Behavior is calm, cooperative, rr5 appropriate for age. 00:15 Pain: Complains of pain in left eye Pain does not radiate. Pain currently is 1 out of rr5 10 on a pain scale. Quality of pain is described as aching, Pain began gradually, Is intermittent. Neuro: Level of Consciousness is awake, alert, obeys commands, Oriented to person, place, time, situation. Cardiovascular: Capillary refill < 3 seconds Patient's skin is warm and dry. Respiratory: Reports flu like symptoms Airway is patent Respiratory effort is even, unlabored, Respiratory pattern is regular, symmetrical. GI: No signs and/or symptoms were reported involving the gastrointestinal system. : No signs and/or symptoms were reported regarding the genitourinary system. EENT: Sclera/Cornea are reddened in outer aspect of conjuctiva of right eye, inner aspect of conjuctiva of right eye, outer aspect of conjuctiva of left eye and inner aspect of conjunctiva of left eye Reports redness of eye. Derm: Skin is intact, is healthy with good turgor, Skin temperature is warm. 01:30 Reassessment: Patient appears in no apparent distress at this time. Patient is alert, rr5 oriented x 3, equal unlabored respirations, skin warm/dry/pink. discharge instruction given and explained without complaints made. Vital Signs: 00:00 BP 138 / 85; Pulse 70; Resp 18 S; Temp 98.2(O); Pulse Ox 99% on R/A; Weight 83.01 kg jd3 (R); Height 5 ft. 5 in. (165.10 cm) (R); Pain /10; 01:10 BP 125 / 70; Pulse 75; Resp 16; Pulse Ox 99% on R/A; rr5 00:00 Body Mass Index 30.45 (83.01 kg, 165.10 cm) jd3 Visual Acuity: 00:45 Left Eye Visual acuity 20/100, ; Right Eye Visual acuity 20/25, ; Both Eyes Visual rr5 acuity 20/25; Without Lenses; right eye has contact lens, left eye without contact lens ED Course: 09/14 23:53 Patient arrived in ED. cl3 23:59 Triage completed. jd3 00:01 Arm band placed on. jd3 00:10 Patient has correct armband on for positive identification. Placed in gown. Bed in low rr5 position. 00:15 Nancy Mullins FNP-C is PHCP. kb 00:15 Nadeem Castelan MD is Attending Physician. kb 00:16 Nam Merchant RN is Primary Nurse. rr5 01:10 Assist provider with eye exam of both eyes. using fluorescein stain, Performed by jarrell WEST Patient tolerated well. 01:30 Patient did not have IV access during this emergency room visit. rr5 Administered Medications: 01:05 Drug: Tetracaine Drops 0.5 % 1 drops Route: Ophthalmic; Site: both eyes; rr5 01:30 Follow up: Response: No adverse reaction; given by nancy vieyra Intake: Outcome: 01:10 Discharge ordered by MD. canchola 01:25 Discharged to home ambulatory. rr5 01:25 Condition: stable 01:25 Discharge instructions given to patient, Instructed on discharge instructions, follow up and referral plans. medication usage, Demonstrated understanding of instructions, follow-up care, medications, Prescriptions given X 1. 01:30 Patient left the ED. rr5 Signatures: Nancy Mullins, JENNA BEARDENP-Ashvin Suarez RN RN jNam Storm RN RN rr5 Mayra Davison cl3 Corrections: (The following items were deleted from the chart) 02:21 01:30 No provider procedures requiring assistance completed. rr5 rr5 02:26 00:45 Right Eye With Lenses, 20/25, Left Eye With Lenses, 20/100, Both Eyes With rr5 Lenses, 20/25, right eye has contact lens, left eye without contact lens rr5
[2019-09-15 01:34] VITALS: BP 138/85; TEMP 98.2; O2SAT 99
== END 2019-09-15 01:30 | disposition home or self-care (01) ==
LOC: ER 23:52
DX: J06.9 Acute upper respiratory infection, unspecified (principal); H10.9 Unspecified conjunctivitis
CPT/HCPCS: 87070; 87081; 87804; 99283

== ENCOUNTER 2020-12-12 18:14 | Emergency (ER) | payer SELFPAY ==
--- OUTSIDE RECORDS SUMMARY | 2020-12-12 18:21 | XMS REPORT | Continuity of Care Document ---
:2000 Author Organization [facility] t Address [address] [place] [address] Care Team Providers Name Role Phone Nurse, Rmchp Exp Cprit Obgyn Attending Clinician Unavailabl e Problems This patient has no known problems. Allergies, Adverse Reactions, Alerts This patient has no known allergies or adverse reactions. Medications This patient has no known medications. Procedures This patient has no known procedures. 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
--- NOTE | 2020-12-12 21:19 | ER ---
Nurse's Notes [facility] Name: Danitza Noguera Age: 20 yrs Sex: Female : 2000 Arrival Date: 12/12/2020 Time: 18:20 Bed Waiting Private MD: Diagnosis: Presentation: 12/12 18:41 Chief complaint: Patient states: CRAWFORD off/on for 4 days, takes Tylenol but it comes right ll1 back. Position changes make her head hurt worse. Coronavirus screen: Client denies travel out of the [place] in the last 14 days. At this time, the client does not indicate any symptoms associated with coronavirus-19. Ebola Screen: Patient denies travel to an Ebola-affected area in the 21 days before illness onset. Initial Sepsis Screen: Does the patient meet any 2 criteria? No. Patient's initial sepsis screen is negative. Does the patient have a suspected source of infection? Yes: Other: CRAWFORD. Risk Assessment: Do you want to hurt yourself or someone else? Patient reports no desire to harm self or others. Onset of symptoms was December 09, 2020. 18:41 Method Of Arrival: Ambulatory ll1 18:41 Acuity: NORBERTO 3 ll1 Historical: - Allergies: 18:43 No Known Drug Allergies; ll1 - PMHx: 18:43 None; ll1 - PSHx: 18:43 ; ll1 - Immunization history:: Flu vaccine status is unknown. - Social history:: Smoking status: Patient denies any tobacco usage or history of. Vital Signs: 18:41 BP 117 / 86; Pulse 78; Resp 16; Temp 98.2; Pulse Ox 98% ; Weight 86.18 kg; Height 5 ft. ll1 6 in. (167.64 cm); Pain 7/10; 18:41 Body Mass Index 30.67 (86.18 kg, 167.64 cm) ll1 ED Course: 18:20 Patient arrived in ED. bp1 18:43 Triage completed. ll1 18:43 Arm band placed on. ll1 Administered Medications: No medications were administered Outcome: 21:18 Patient left the ED. iw Signatures: Francesca Rivas RN RN iw Carolina Davison RN RN 1 Isis Trejo bp1
[2020-12-12 21:24] VITALS: BP 117/86; TEMP 98.2; O2SAT 98
== END 2020-12-12 21:18 | disposition left against medical advice (07) ==
LOC: ER 18:15
DX: Z53.21 Procedure and treatment not carried out due to patient leaving prior to being seen by health care provider (principal)
CPT/HCPCS: 99281

== ENCOUNTER 2021-05-12 07:26 | Emergency (ER) | payer OTHER, SELFPAY ==
[2021-05-12] MEDS ORDERED: IBUPROFEN 400 MG TAB ONE (09:01)
--- NOTE | 2021-05-12 12:42 | ER ---
Nurse's Notes [facility] Name: Danitza Noguera Age: 20 yrs Sex: Female : 2000 Arrival Date: 05/12/2021 Time: 07:30 Bed 7 Private MD: Diagnosis: Dental caries, unspecified Presentation: 05/12 07:38 Chief complaint: Patient states: " I had a toothache that started last week, I was tw5 going to get it check out but I thought it was getting better so I didn't. Now the pain has spread to my left ear and it feels like someone is punching my ear and I cannot hear out of it.". Coronavirus screen: Vaccine status: Patient reports being unvaccinated. Ebola Screen: Patient negative for fever greater than or equal to 101.5 degrees Fahrenheit, and additional compatible Ebola Virus Disease symptoms Patient denies exposure to infectious person. Patient denies travel to an Ebola-affected area in the 21 days before illness onset. Initial Sepsis Screen: Does the patient meet any 2 criteria? No. Patient's initial sepsis screen is negative. Does the patient have a suspected source of infection? No. Patient's initial sepsis screen is negative. Risk Assessment: Do you want to hurt yourself or someone else? Patient reports no desire to harm self or others. Onset of symptoms was May 06, 2021. 07:38 Method Of Arrival: Ambulatory tw5 07:38 Acuity: NORBERTO 4 tw5 Triage Assessment: 07:40 General: Appears in no apparent distress. uncomfortable, Behavior is calm, cooperative. tw5 Pain: Complains of pain in left jaw Pain radiates to left ear Pain currently is 9 out of 10 on a pain scale. EENT: Reports pain in left ear "It was ringing at first now I cannot hear at all.". 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 - Social history:: Smoking status: Patient denies any tobacco usage or history of. - Family history:: not pertinent. - Hospitalizations: : No recent hospitalization is reported. Screenin:50 Abuse screen: Denies threats or abuse. Nutritional screening: No deficits noted. ap3 Tuberculosis screening: No symptoms or risk factors identified. Fall Risk None identified. Assessment: 07:51 General: Appears in no apparent distress. comfortable, Behavior is calm, cooperative, ap3 appropriate for age. Pain: Complains of pain in left ear. Pain: Pain radiates to left side of face and jaw. Neuro: Level of Consciousness is awake, alert, obeys commands, Oriented to person, place, time, situation, Appropriate for age Moves all extremities. Gait is steady, Speech is normal. Cardiovascular: Capillary refill < 3 seconds Patient's skin is warm and dry. Respiratory: Airway is patent Respiratory effort is even, unlabored, Respiratory pattern is regular, symmetrical. EENT: Reports pain in left ear. 08:16 Reassessment: No changes from previously documented assessment. ap3 Vital Signs: 07:38 BP 144 / 103; Pulse 75; Resp 14; Temp 98.4; Pulse Ox 99% on R/A; Weight 90.72 kg; tw5 Height 5 ft. 5 in. (165.10 cm); Pain 9/10; 08:16 BP 129 / 101; Pulse 68; Resp 18; Pulse Ox 99% on R/A; ap3 07:38 Body Mass Index 33.28 (90.72 kg, 165.10 cm) tw5 ED Course: 07:30 Patient arrived in ED. am2 07:36 Cal Aldana MD is Attending Physician. rn 07:40 Triage completed. tw5 07:40 Arm band placed on right wrist. tw5 07:49 Rosaura Ram, PADMINI is Primary Nurse. ap3 07:50 Patient has correct armband on for positive identification. Bed in low position. Call ap3 light in reach. Pulse ox on. NIBP on. Door closed. Noise minimized. 07:52 No provider procedures requiring assistance completed. Patient did not have IV access ap3 during this emergency room visit. Administered Medications: 08:37 Drug: Motrin (ibuprofen) 800 mg Route: PO; ap3 08:37 Follow up: Response: No adverse reaction ap3 Outcome: 08:20 Discharge ordered by . rn 08:37 Discharged to home ambulatory. ap3 08:37 Condition: good 08:37 Discharge instructions given to patient, Instructed on discharge instructions, follow up and referral plans. Demonstrated understanding of instructions, follow-up care, medications, Prescriptions given X 2. 08:37 Patient left the ED. ap3 Signatures: Cal Aldana MD MD rn Moreno, Amanda am2 Rosaura Ram RN RN ap3 Franci Landry tw5
--- NOTE | 2021-05-12 12:42 | EDPHYS ---
Physician Documentation [facility] Name: Danitza Noguera Age: 20 yrs Sex: Female : 2000 Arrival Date: 05/12/2021 Time: 07:30 Bed 7 Private MD: ED Physician Cal Aldana HPI: 05/12 07:51 This 20 yrs old Black Female presents to ER via Ambulatory with complaints of rn Toothache, Ear Pain. 07:51 The patient presents with pain. The problem is located in the left jaw. rn 07:51 Onset: The symptoms/episode began/occurred 1 week(s) ago. Duration: The symptoms are rn intermittent. Modifying factors: The symptoms are alleviated by orajel. Associated signs and symptoms: Pertinent positives: pain, Pertinent negatives: chills, fever, inability to eat, swelling, vomiting. Severity of symptoms: At their worst the symptoms were moderate, in the emergency department the symptoms have improved. The patient has experienced similar episodes in the past. The patient has not recently seen a physician. Pt reports left jaw/dental pain since last week, no trauma, no fever. Reports dental pain improving with orajel and OTC meds. Reports also having pain to left ear as well as muffled sounds in left ear. No trauma to left ear or drainage. . 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 - Social history:: Smoking status: Patient denies any tobacco usage or history of. - Family history:: not pertinent. - Hospitalizations: : No recent hospitalization is reported. ROS: 07:51 Constitutional: Negative for fever, chills, and weight loss, Eyes: Negative for injury, rn pain, redness, and discharge, ENT: + pain to left jaw and left ear Neck: Negative for injury, pain, and swelling, Cardiovascular: Negative for chest pain, palpitations, and edema, Respiratory: Negative for shortness of breath, cough, wheezing, and pleuritic chest pain, Abdomen/GI: Negative for abdominal pain, nausea, vomiting, diarrhea, and constipation, MS/Extremity: Negative for injury and deformity, Skin: Negative for injury, rash, and discoloration, Neuro: Negative for headache, weakness, numbness, tingling, and seizure. Exam: 07:51 Constitutional: This is a well developed, well nourished patient who is awake, alert, rn and in no acute distress. Head/Face: Normocephalic, atraumatic. No swelling of buccal space or tenderness. Eyes: Pupils equal round and reactive to light, extra-ocular motions intact. Lids and lashes normal. Conjunctiva and sclera are non-icteric and not injected. Cornea within normal limits. Periorbital areas with no swelling, redness, or edema. ENT: Nares patent. No nasal discharge. Left TM normal without perforation or erythema/fluid/drainage. Mucous membranes moist. + poor dentition with multiple fillings, orajel seen along gingival surface left posterior lower teeth, no obvious erythema or abscess. No drainage. Neck: Trachea midline, no thyromegaly or masses palpated, and no cervical lymphadenopathy. Supple, full range of motion without nuchal rigidity. No Meningismus. Cardiovascular: Regular rate and rhythm. No pulse deficits. Neuro: Awake and alert, GCS 15, oriented to person, place, time, and situation. Cranial nerves II-XII grossly intact. Motor strength 5/5 in all extremities. Sensory grossly intact. Cerebellar exam normal. Normal gait. Vital Signs: 07:38 BP 144 / 103; Pulse 75; Resp 14; Temp 98.4; Pulse Ox 99% on R/A; Weight 90.72 kg; tw5 Height 5 ft. 5 in. (165.10 cm); Pain 9/10; 08:16 BP 129 / 101; Pulse 68; Resp 18; Pulse Ox 99% on R/A; ap3 07:38 Body Mass Index 33.28 (90.72 kg, 165.10 cm) tw5 MDM: 07:44 Patient medically screened. rn 08:17 Differential diagnosis: dental caries, dental abscess, referred pain. Data reviewed: rn vital signs, nurses notes, and as a result, I will discharge patient. Counseling: I had a detailed discussion with the patient and/or guardian regarding: the historical points, exam findings, and any diagnostic results supporting the discharge/admit diagnosis, the need for outpatient follow up, to return to the emergency department if symptoms worsen or persist or if there are any questions or concerns that arise at home. Special discussion: I discussed with the patient/guardian in detail that at this point there is no indication for admission to the hospital. It is understood, however, that if the symptoms persist or worsen the patient needs to return immediately for re-evaluation. Special discussion: Based on the history and exam findings, there is no indication for further emergent testing or inpatient evaluation. I discussed with the patient/guardian the need to see a dentist for further evaluation of the symptoms. Administered Medications: 08:37 Drug: Motrin (ibuprofen) 800 mg Route: PO; ap3 08:37 Follow up: Response: No adverse reaction ap3 Disposition Summary: 05/12/21 08:20 Discharge Ordered Location: Home rn Problem: new rn Symptoms: have improved rn Condition: Stable rn Diagnosis - Dental caries, unspecified rn Followup: rn - With: Private Physician - When: As needed - Reason: Recheck today's complaints, Re-evaluation by your physician Discharge Instructions: - Discharge Summary Sheet rn - Dental Caries, Adult rn - Dental Pain rn Forms: - Medication Reconciliation Form rn - Thank You Letter rn - Antibiotic 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
[2021-05-12 15:19] VITALS: TEMP 98.4; O2SAT 99
[2021-05-12 15:20] VITALS: BP 129/101
== END 2021-05-12 08:37 | disposition home or self-care (01) ==
LOC: ER 07:26
DX: K02.9 Dental caries, unspecified (principal)
CPT/HCPCS: 99283

== ENCOUNTER 2022-06-17 09:05 | Emergency (ER) | payer OTHER, SELFPAY ==
--- OUTSIDE RECORDS SUMMARY | 2022-06-17 09:09 | XMS REPORT | Continuity of Care Document ---
:2000 Author Organization [facility] t Address [address] [place] [address] Care Team Providers Name Role Phone IRAM WALLACE Primary Care Physician Unavailable UNKNOWN, ATTENDING Attending Clinician Unavailable Peter WHIram STEVEN Attending Clinician [phone] IRAM WALLACE Attending Clinician Unavailable Doctor Unassigned, [place] Attending Clinician Unavailable CASA HENNESSY Attending Clinician Unavailable Nurse, Rehan Rmchp Exp Cprit Obgyn Attending Clinician Unavail able Payers Payer Name Policy Type Policy Number Effective Date Expiration Date [facility] [id number] 2021 [facility] [place] ST[place] 00:00:00 Problems Condition Condition Condition Status Onset Resolution Last Treating Co mments Source Name Details Category Date Date Treatment Clinician Date Contracept Contracept Disease Active 2017-07 U jocy collado tobias 07-18 ity of [place] Obesity Obesity Disease Active Univers (BMI (BMI 8-28 ity of 30-39.9) 30-39.9) 00:00: [place] 00 Medical Branch Family Family Disease Active Univers history of history of 5-29 it y of ASD ASD 00:00: [place] (atrial (atrial 00 Medical septal septal Branch defect) defect) Allergies, Adverse Reactions, Alerts Allergy Allergy Status Severity Reaction(s) Onset Inactive Treating Comm ents Source Name Type Date Date Clinician NO KNOWN Drug Active Univers ALLERGIE Class ity of S [facility] Social History Social Habit Start Date Stop Date Quantity Comments Source Exposure to Not sure University of SARS-CoV-2 [place] Medical (event) Branch Alcohol intake 2021-09-23 2021-09-23 Current University of 00:00:00 00:00:00 non-drinker of [facility] alcohol [place] (finding) Tobacco use and 2017-12-13 2017-12-13 Never used Universit y of exposure 00:00:00 00:00:00 [facility] Sex Assigned At [birth year] Universit y of 00:00:00 00:00:00 [facility] Smoking Status Start Date Stop Date Source Never smoker [facility] Medications Ordered Filled Start Stop Current Ordering Indication Dosage Frequency Signature Comments Components Source Medication Medication Date Date Medication? Clinician (SIG) Name Name phentermine Yes 37.5mg Take 37.5 Univers 37.5 mg 2-17 mg by ity of tablet 00:00: mouth [place] 00 daily. Medical Branch phentermine Yes 37.5mg Take 37.5 Univers 37.5 mg 2-17 mg by ity of tablet 00:00: mouth [place] 00 daily. Medical Branch HYDROcodone 2021- No 1{tbl} Take 1 U nivers -acetaminop 04-04 tablet by it y of hen 5-325 00:00: 00:00 mouth [place] mg tablet 00 :00 every 6 Medical (six) Branch hours as needed for Pain (scale 4-6) (If uncontroll ed by Ibuprofen) . HYDROcodone 2021- No 1{tbl} Take 1 U nivers -acetaminop 04-04 tablet by it y of hen 5-325 00:00: 00:00 mouth [place] mg tablet 00 :00 every 6 Medical (six) Branch hours as needed for Pain (scale 4-6) (If uncontroll ed by Ibuprofen) . CITRANATAL 2021- No TAKE 1 Univ ers 90 DHA, 12-20 TABLET AND ity o f ALGAL OIL, 00:00: 00:00 1 [place]LE [place] 90 mg 00 :00 BY MOUTH Medical iron-1 mg EVERY DAY Branc h -50 mg-300 mg combo pack CITRANATAL 2021- No TAKE 1 [facility] ers 90 DHA, 6-05 09-23 TABLET AND ity o f ALGAL OIL, 00:00: 00:00 1 CAPSULE [place] 90 mg 00 :00 BY MOUTH Medical iron-1 mg EVERY DAY Branc h -50 mg-300 mg combo pack Immunizations Ordered Filled Immunization Date Status Comments Sourc e Immunization Name Name [facility] 2019-02-12 Completed University of 00:00:00 [facility] 2019-02-12 Completed University of 00:00:00 [facility] 2018-05-18 Completed University of 00:00:00 [facility] 2018-05-18 Completed University of 00:00:00 [facility] 2018-04-04 Completed University of 00:00:00 [facility] 2018-04-04 Completed University of 00:00:00 [facility] TDAP 2018-01-09 Completed University of 00:00:00 [facility] TDAP 2018-01-09 Completed University of 00:00:00 [facility] Vital Signs Vital Name Observation Time Observation Value Comments Source Systolic blood 2021-09-23 14:30:00 130 mm[Hg] Univer sity of pressure [facility] Diastolic blood 2021-09-23 14:30:00 91 mm[Hg] Unive rsity of [facility] Heart rate 2021-09-23 14:29:00 80 /min [facility] Body temperature 2021-09-23 14:29:00 35.89 Angela [facility] Respiratory rate 2021-09-23 14:29:00 18 /min [facility] Body height 2021-09-23 14:29:00 165.1 cm [facility] Body weight 2021-09-23 14:29:00 93.129 kg [facility] BMI 2021-09-23 14:29:00 34.17 kg/m2 [facility] Procedures Procedure Date / Time Performed Performing Clinician Zayra e HIV 1/2 AG-AB WITH 2021-09-23 15:19:00 Iram Wallace [facility] PAP SMEAR-LIQUID 2021-09-23 15:19:00 Iram Wallace [facility] BASED-CP [facility] GALV ONLY - [place] 2021-09-23 15:19:00 [facility] Encounters Start End Encounter Admission Attending Care Care Encounter Source Date/Time Date/Time Type Type Clinicians Facility Department ID 2022-06-17 2022-06-17 Outpatient R UNKNOWN, [facility] [id number] Univers 10:00:00 10:00:00 ATTENDING tino [facility] 2021-09-23 2021-09-23 Office Peter [facility] [id number] Univers 08:15:00 09:19:24 Visit 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 [id number] Univers 08:15:00 09:19:24 IRAM couch [facility] 2021-09-23 2021-09-23 Outpatient R PETER [facility] [id number] Univers 08:15:00 09:19:24 IRAM couch [facility] 2021-09-23 2021-09-23 Orders Doctor WILLIE [id number] Univers 00:00:00 00:00:00 Only Unassigned, JUSTIN [id number] ity of [facility] [id number] Rene as [id number] [address] 2021-08-05 2021-08-05 Outpatient R MINOO, [facility] [id number] Univers 16:00:00 16:00:00 CASA couch [facility] 2021-07-02 2021-07-02 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 pallidum infection. Cannot exclude incubating or early syphilis. Submit a second specimen in 2-4 weeks if syphilis is clinically suspected. Equivocal - Further testing to follow. Reactive - Further testing to follow. Lab Interpretation (test code = Normal 93245-0) [facility] [id number] 17:54:17 Test Item Value Reference Range Interpretation Comments Syphilis IgG/IgM (test Non-reactive Non-reactive code = 55371-0) ADITYA (test code = ADITYA) Non-reactive - No serologic evidence of T. pallidum infection. Cannot exclude incubating or early syphilis. Submit a second specimen in 2-4 weeks if syphilis is clinically suspected. Equivocal - Further testing to follow. Reactive - Further testing to follow. Lab Interpretation (test Normal code = 71965-7) [facility]-AB WITH [id number] 06:15:11 Test Item Value Reference Range Interpretation Comments HIV Negative Negative Semi-quantitative (test code = 94059-6) ADITYA (test code = Non-reactive for HIV-1 ADITYA) antigen and HIV-1/HIV-2 antibodies. ?No laboratory evidence of HIV infection. ?Repeat in 2-4 weeks if acute HIV infection is suspected. [facility] 1/2 AG-AB WITH [id number] 06:15:11 Test Item Value Reference Range Interpretation Comments HIV Negative Negative Semi-quantitative (test code = 39253-7) ADITYA (test code = Non-reactive for HIV-1 ADITYA) antigen and HIV-1/HIV-2 antibodies. ?No laboratory evidence of HIV infection. ?Repeat in 2-4 weeks if acute HIV infection is suspected. [facility]
[2022-06-17 09:48] LABS: Urine Blood 2+ (Negative); Urine Glucose Negative (Negative); Urine Protein Trace (Negative); Urine Specific Gravity 1.025 (1.005-1.030)
[2022-06-17 10:11] LABS: Urine Mucus Slight /HPF (None Seen); Urine RBC >50 /HPF (None Seen)
[2022-06-17 10:14] LABS: Urine Specific Gravity/Preg 1.025 (1.005-1.030)
--- NOTE | 2022-06-17 10:22 | ER ---
Nurse's Notes [facility] Name: Danitza Noguera Age: 21 yrs Sex: Female : 2000 Arrival Date: 06/17/2022 Time: 09:08 Bed 11 Private MD: Diagnosis: UTI/ Urinary tract infection, site not specified Presentation: 06/17 09:27 Chief complaint: Patient states: pain in my stomach when I go to the bathroom, started iw 2 days ago, pain with urination, denies fever or chills, no back pain or n/v. Coronavirus screen: At this time, the client does not indicate any symptoms associated with coronavirus-19. Ebola Screen: Patient negative for fever greater than or equal to 101.5 degrees Fahrenheit, and additional compatible Ebola Virus Disease symptoms Patient denies exposure to infectious person. Patient denies travel to an Ebola-affected area in the 21 days before illness onset. No symptoms or risks identified at this time. Initial Sepsis Screen: Does the patient meet any 2 criteria? No. Patient's initial sepsis screen is negative. Does the patient have a suspected source of infection? No. Patient's initial sepsis screen is negative. Risk Assessment: Do you want to hurt yourself or someone else? Patient reports no desire to harm self or others. Onset of symptoms was June 16, 2022. 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 - Social history:: Smoking status: Patient denies any tobacco usage or history of. Vital Signs: : BP 121 / 85; Pulse 79; Resp 16; Temp 98.7; Pulse Ox 100% on R/A; Weight 86.18 kg; iw Height 5 ft. 6 in. (167.64 cm); Pain 8/10; 09: Body Mass Index 30.67 (86.18 kg, 167.64 cm) ED Course: 09:08 Patient arrived in ED. as :08 Goyo Pearson PA is PHCP. cp 09:08 Goyo Amezcua MD is Attending Physician. cp 09:29 Triage completed. iw 09:29 Arm band placed on. iw 09:44 Francesca Rivas, RN is Primary Nurse. iw Administered Medications: No medications were administered Outcome: 10:22 Discharge ordered by . cp 10:38 Patient left the ED. iw Signatures: Miranda Coello as Francesca Rivas RN RN iw Goyo Pearson PA PA cp
--- NOTE | 2022-06-17 10:23 | EDPHYS ---
Physician Documentation [facility] Name: Danitza Noguera Age: 21 yrs Sex: Female : 2000 Arrival Date: 06/17/2022 Time: 09:08 Bed 11 Private MD: ED Physician Goyo Amezuca HPI: 06/17 10:00 This 21 yrs old Black Female presents to ER via Ambulatory with complaints of Pain With cp Urination, Pelvic Pain, Abdominal Pain. 10:00 The patient presents with urinary symptoms, dysuria. Onset: The symptoms/episode cp began/occurred 2 day(s) ago. 10:00 Associated signs and symptoms: Pertinent negatives: constipation, diarrhea, fever, cp vaginal bleeding, vaginal discharge, vomiting, low back pain. Severity of symptoms: in the emergency department the symptoms are unchanged, despite home interventions. 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 - Social history:: Smoking status: Patient denies any tobacco usage or history of. ROS: 10:05 Constitutional: Negative for body aches, chills, fever, poor PO intake. cp 10:05 Eyes: Negative for injury, pain, redness, and discharge. cp 10:05 ENT: Negative for drainage from ear(s), ear pain, sore throat, difficulty swallowing, difficulty handling secretions. 10:05 Abdomen/GI: Positive for abdominal pain, of the suprapubic area, Negative for vomiting, diarrhea, constipation. 10:05 Back: Negative for pain at rest, pain with movement. 10:05 : Positive for burning with urination, Negative for hematuria, vaginal bleeding, vaginal discharge. 10:05 Neuro: Negative for altered mental status, headache, weakness. Exam: 10:10 Constitutional: The patient appears in no acute distress, alert, awake, comfortable, cp non-toxic, well developed, well nourished. 10:10 Head/Face: Normocephalic, atraumatic. cp 10:10 Cardiovascular: Rate: normal. 10:10 Respiratory: the patient does not display signs of respiratory distress, Respirations: normal, no use of accessory muscles, no retractions, labored breathing, is not present. 10:10 Abdomen/GI: Exam negative for discomfort, distension, guarding, Inspection: abdomen appears normal. 10:10 Back: pain, is absent, ROM is normal. Vital Signs: 09:27 BP 121 / 85; Pulse 79; Resp 16; Temp 98.7; Pulse Ox 100% on R/A; Weight 86.18 kg; iw Height 5 ft. 6 in. (167.64 cm); Pain 8; 09:27 Body Mass Index 30.67 (86.18 kg, 167.64 cm) iw MDM: 09:30 Patient medically screened. cp 10:10 Differential diagnosis: ovarian cyst, pelvic inflammatory disease, urinary tract cp infection, pyelonephritis. 10:22 Data reviewed: vital signs, nurses notes, lab test result(s), and as a result, I will cp discharge patient. 10:22 Counseling: I had a detailed discussion with the patient and/or guardian regarding: the cp historical points, exam findings, and any diagnostic results supporting the discharge/admit diagnosis, to return to the emergency department if symptoms worsen or persist or if there are any questions or concerns that arise at home. ED course: VSS. Patient appears non-toxic. Will discharge to home for continued monitoring. 06/17 09:30 Order name: Urine Microscopic Only; Complete Time: 10:15 cp 06/17 10:15 Interpretation: Normal except: UWBC 20-50; URBC >50. cp 06/17 09:48 Order name: Urine Dipstick-Ancillary; Complete Time: 10:15 EDMS 06/17 10:15 Interpretation: Normal except: UBLD 2+; UPROT Trace; UESTR 1+. cp 06/17 09:30 Order name: Urine Dipstick-Ancillary (obtain specimen); Complete Time: 09:49 cp 06/17 09:48 Order name: Urine Dipstick-Ancillary; Complete Time: 10:15 EDMS 06/17 10:15 Interpretation: Normal except: UBLD 2+; UPROT Trace; UESTR 1+. cp 06/17 09:59 Order name: Urine --Ancillary (enter results); Complete Time: 10:15 em1 06/17 10:14 Order name: Urine Culture EDMS 06/17 09:30 Order name: Urine Test (obtain specimen); Complete Time: 09:57 cp Administered Medications: No medications were administered Disposition Summary: 06/17/22 10:22 Discharge Ordered Location: Home cp Problem: new cp Symptoms: are unchanged cp Condition: Stable cp Diagnosis - UTI/ Urinary tract infection, site not specified cp Followup: cp - With: Private Physician - When: 2 - 3 days - Reason: Worsening of condition Discharge Instructions: - Discharge Summary Sheet cp - Urinary Tract Infection, Adult cp Forms: - Medication Reconciliation Form cp - Work release form iw - Thank You Letter cp - Antibiotic Education cp - Prescription Opioid Use cp Prescriptions: - Pyridium 200 mg Oral Tablet - take 1 tablet by ORAL route every 8 hours for 3 days; 6 tablet; Refills: 0, cp Product Selection Permitted - Macrobid 100 mg Oral Capsule - take 1 capsule by ORAL route every 12 hours for 7 days; 14 capsule; Refills: 0, cp Product Selection Permitted Addendum: 06/20/2022 07:54 Co-signature as Attending Physician, Goyo Amezcua MD I agree with the assessment and c gonzalez plan of care. Signatures: Dispatcher [employer] Goyo Hicks MD MD cha Williams, Irene, RN RN Goyo Carmen PA PA cp
[2022-06-17 10:42] VITALS: BP 121/85; TEMP 98.7; O2SAT 100
== END 2022-06-17 10:38 | disposition home or self-care (01) ==
LOC: ER 09:05
DX: N39.0 Urinary tract infection, site not specified (principal)
CPT/HCPCS: 81003; 81015; 81025; 87086; 87088; 99281

== ENCOUNTER 2023-01-22 19:27 | Emergency (ER) | payer OTHER ==
--- OUTSIDE RECORDS SUMMARY | 2023-01-22 19:31 | XMS REPORT | Continuity of Care Document ---
:2000 Author Organization [facility] t Address [address] [place] [address] [address] [place] [address] Care Team Providers Name Role Phone Iram Alan Primary Care Physician TONI BULLOCK Attending Clinician Unavailable [facility] Attending Clinician Unavailable Toni Martínez Attending Clinician Nayeli Regalado Attending Clinician NAYELI CORDON Attending Clinician Unavailable Iram Alan Attending Clinician [phone] UNKNOWN, ATTENDING Attending Clinician Unavailable IRAM GREEN Attending Clinician Unavailable Doctor Unassigned, [place] Attending Clinician Unavailable CASA HENNESSY Attending Clinician Unavailable NurseRehan Rmchp Exp [facility] Attending Clinician Unavail able Payers Payer Name Policy Type Policy Number Effective Date Expiration Date S ource Problems Condition Condition Condition Status Onset Resolution Last Treating Co mments Source Name Details Category Date Date Treatment Clinician Date Contracept Contracept Disease Active 2017-07 U jocy collado tobias 07-18 ity of management management 00:00: [place] [address] [place] [address] Obesity Obesity Disease Active Univers (BMI (BMI 8-28 ity of 30-39.9) 30-39.9) 00:00: [address] Family Family Disease Active Univers history of history of 5-29 it y of ASD ASD 00:00: [place] (atrial (atrial 00 Medical septal septal Branch defect) defect) Allergies, Adverse Reactions, Alerts Allergy Allergy Status Severity Reaction(s) Onset Inactive Treating Comm ents Source Name Type Date Date Clinician NO KNOWN Drug Active Univers ALLERGIE Class ity of S [facility] Social History Social Habit Start Date Stop Date Quantity Comments Source Exposure to 2022-09-13 2022-09-23 Not sure [facility]-CoV-2 00:00:00 09:51:00 [place] [facility] (event) Branch Tobacco use and 2022-09-23 2022-09-23 Smokeless tobacco Un iversity of exposure 00:00:00 00:00:00 non-user [facility] Alcohol intake 2022-09-23 2022-09-23 Current University 00:00:00 00:00:00 non-drinker of [facility] [place] alcohol (finding) Branch Sex Assigned At [birth year] Universit y of 00:00:00 00:00:00 [facility] Smoking Status Start Date Stop Date Source Never smoked tobacco [facility] Medications Ordered Filled Start Stop Current Ordering Indication Dosage Frequency Signature Comments Components Source Medication Medication Date Date Medication? Clinician (SIG) Name Name phentermine Yes 37.5mg Take 1 Un padmini 37.5 mg 2-17 tablet by ity of tablet 00:00: mouth in [place] the Medical morning. Branch phentermine Yes 37.5mg Take 1 Un padmini 37.5 mg 2-17 tablet by ity of tablet 00:00: mouth in [place] the Medical morning. Branch phentermine Yes 37.5mg Take 1 Un padmini 37.5 mg 2-17 tablet by ity of tablet 00:00: mouth in [place] the Medical morning. Branch phentermine 2021-0 Yes 37.5mg Take 37.5 Univers 37.5 mg 2-17 mg by ity of tablet 00:00: mouth [place] 00 daily. Medical Branch phentermine 0 Yes 37.5mg Take 37.5 Univers 37.5 mg 2-17 mg by ity of tablet 00:00: mouth [place] 00 daily. Medical Branch phentermine 0 Yes 37.5mg Take 37.5 Univers 37.5 mg 2-17 mg by ity of tablet 00:00: mouth [place] 00 daily. Medical Branch HYDROcodone 2021- No 1{tbl} Take 1 U nivers -acetaminop 9-18 03-09 tablet by it y of hen 5-325 00:00: 00:00 mouth [place] mg tablet 00 :00 every 6 Medical (six) Branch hours as needed for Pain (scale 4-6) (If uncontroll ed by Ibuprofen) . HYDROcodone 2021- No 1{tbl} Take 1 U nivers -acetaminop 9-18 -09 tablet by it y of hen 5-325 [...] combo pack CITRANATAL 2021- No TAKE 1 Univ ers 90 DHA, 12-20 TABLET AND ity o f ALGAL OIL, 00:00: 00:00 1 CAPSULE [place] 90 mg 00 :00 BY MOUTH Medical iron-1 mg EVERY DAY Branc h -50 mg-300 mg combo pack Immunizations Ordered Filled Immunization Date Status Comments Sour e Immunization Name Name HPV9 2019-02-12 Completed University of 00:00:00 [facility] HPV9 2019-02-12 Completed University of 00:00: [facility] HPV9 2019-02-12 Completed University of 00:00:00 [facility] HPV9 2019-02-12 Completed University of 00:00:00 [facility] HPV9 2019-02-12 Completed University of 00:00:00 [facility] HPV9 2019-02-12 Completed University of 00:00:00 [facility]9 2018-05-18 Completed University of 00:00:00 [facility] HPV9 2018-05-18 Completed University of 00:00:00 [facility] HPV9 2018-05-18 Completed University of 00:00:00 [facility]9 2018-05-18 Completed University of 00:00:00 [facility] Branch HPV9 2018-05-18 Completed University of 00:00:00 [facility] Branch HPV9 2018-05-18 Completed University of 00:00:00 [facility] Branch HPV9 2018-04-04 Completed University of 00:00:00 [facility] Branch HPV9 2018-04-04 Completed University of 00:00:00 [facility] Branch HPV9 2018-04-04 Completed University of 00:00:00 [facility] Branch HPV9 2018-04-04 Completed University of 00:00:00 [facility] Branch HPV9 2018-04-04 Completed University of 00:00:00 [facility] Branch HPV9 2018-04-04 Completed University of 00:00:00 [facility] TDAP 2018-01-09 Completed University of 00:00:00 [facility] TDAP 2018-01-09 Completed University of 00:00:00 [facility] TDAP 2018-01-09 Completed University of 00:00:00 [facility] TDAP 2018-01-09 Completed University of 00:00:00 [facility] TDAP 2018-01-09 Completed University of 00:00:00 [facility] TDAP 2018-01-09 Completed University of 00:00:00 [facility] DTaP, Unspecified 2004-03-30 Completed Univers ity of Formulation 00:00:00 [facility] MMR 2004-03-30 Completed University of 00:00:00 [facility] IPV 2004-03-30 Completed University of 00:00:00 [facility] DTaP, Unspecified 2004-03-30 Completed Univers ity of Formulation 00:00:00 [facility] MMR 2004-03-30 Completed University of 00:00:00 [facility] IPV 2004-03-30 Completed University of 00:00:00 [facility] DTaP, Unspecified 2004-03-30 Completed Univers ity of Formulation 00:00:00 [facility] MMR 2004-03-30 Completed University of 00:00:00 [facility] IPV 2004-03-30 Completed University of 00:00:00 [facility] DTaP, Unspecified 2001-05-09 Completed Univers ity of Formulation 00:00:00 [facility] HIB 4 Dose Schedule 2001-05-09 Completed Unive rsity of 00:00:00 [facility] IPV 2001-05-09 Completed University of 00:00:00 [facility] DTaP, Unspecified 2001-05-09 Completed Univers ity of Formulation 00:00:00 [facility] HIB 4 Dose Schedule 2001-05-09 Completed Unive rsity of 00:00:00 [facility] IPV 2001-05-09 Completed University of 00:00:00 [facility] DTaP, Unspecified 2001-05-09 Completed Univers ity of Formulation 00:00:00 [facility] HIB 4 Dose Schedule 2001-05-09 Completed Unive rsity of 00:00:00 [facility] IPV 2001-05-09 Completed University of 00:00:00 [facility] Branch MMR 2000-11-15 Completed University of 00:00:00 [facility] Varicella 2000-11-15 Completed University of (varivax)(chicken 00:00:00 [place] M edical pox) Branch MMR 2000-11-15 Completed University of 00:00:00 [facility] Varicella 2000-11-15 Completed University of (varivax)(chicken 00:00:00 [place] M edical pox) Branch MMR 2000-11-15 Completed University of 00:00:00 [facility] Varicella 2000-11-15 Completed University of (varivax)(chicken 00:00:00 [place] M edical pox) Branch DTaP, Unspecified 2000-07-26 Completed Univers ity of Formulation 00:00:00 [facility] Hep B, Adol or Pedi 2000-07-26 Completed Unive rsity of Dosage 00:00:00 [facility] HIB 4 Dose Schedule 2000-07-26 Completed Unive rsity of 00:00:00 [facility] DTaP, Unspecified 2000-07-26 Completed Univers ity of Formulation 00:00:00 [facility] Hep B, Adol or Pedi 2000-07-26 Completed Unive rsity of Dosage 00:00:00 [facility] HIB 4 Dose Schedule 2000-07-26 Completed Unive rsity of 00:00:00 [facility] DTaP, Unspecified 2000-07-26 Completed Univers ity of Formulation 00:00:00 [facility] Hep B, Adol or Pedi 2000-07-26 Completed Unive rsity of Dosage 00:00:00 [facility] HIB 4 Dose Schedule 2000-07-26 Completed Unive rsity of 00:00:00 [place] [facility] DTaP, Unspecified 2000-05-11 Completed Univers ity of Formulation 00:00:00 [facility] Branch Hep B, Adol or Pedi 2000-05-11 Completed Unive rsity of Dosage 00:00:00 [facility] Branch HIB 4 Dose Schedule 2000-05-11 Completed Unive rsity of 00:00:00 [facility] IPV 2000-05-11 Completed University of 00:00:00 [facility] Branch DTaP, Unspecified 2000-05-11 Completed Univers ity of Formulation 00:00:00 [facility] Branch Hep B, Adol or Pedi 2000-05-11 Completed Unive rsity of Dosage 00:00:00 [facility] Branch HIB 4 Dose Schedule 2000-05-11 Completed Unive rsity of 00:00:00 [facility] Branch IPV 2000-05-11 Completed University of 00:00:00 [facility] Branch DTaP, Unspecified 2000-05-11 Completed Univers ity of Formulation 00:00:00 [facility] Branch Hep B, Adol or Pedi 2000-05-11 Completed Unive rsity of Dosage 00:00:00 [facility] HIB 4 Dose Schedule 2000-05-11 Completed Unive rsity of 00:00:00 [facility] Branch IPV 2000-05-11 Completed University of 00:00:00 [facility] Branch DTaP, Unspecified 2000-01-06 Completed Univers ity of Formulation 00:00:00 [facility] Branch Hep B, Adol or Pedi 2000-01-06 Completed Unive rsity of Dosage 00:00:00 [facility] Branch HIB 4 Dose Schedule 2000-01-06 Completed Unive rsity of 00:00:00 [place] [facility] IPV 2000-01-06 Completed University of 00:00:00 [facility] Branch DTaP, Unspecified 2000-01-06 Completed Univers ity of Formulation 00:00:00 [facility] Branch Hep B, Adol or Pedi 2000-01-06 Completed Unive rsity of Dosage 00:00:00 [facility] Branch HIB 4 Dose Schedule 2000-01-06 Completed Unive rsity of 00:00:00 [place] [facility] IPV 2000-01-06 Completed University of 00:00:00 [facility] Branch DTaP, Unspecified 2000-01-06 Completed Univers ity of Formulation 00:00:00 [place] [facility] Hep B, Adol or Pedi 2000-01-06 Completed Unive rsity of Dosage 00:00:00 [facility] HIB 4 Dose Schedule 2000-01-06 Completed Unive rsity of 00:00:00 [facility] IPV 2000-01-06 Completed University of 00:00:00 [facility] Vital Signs Vital Name Observation Time Observation Value Comments Source Systolic blood 2022-09-23 15:49:00 126 mm[Hg] Univer sity of pressure [facility] Diastolic blood 2022-09-23 15:49:00 85 mm[Hg] Unive rsity of pressure [facility] Heart rate 2022-09-23 15:49:00 84 /min Universi ty of [facility] Body temperature 2022-09-23 15:49:00 35.89 Angela [facility] ersity of [facility] Respiratory rate 2022-09-23 15:49:00 18 /min [facility] ersity of [facility] Body height 2022-09-23 15:49:00 152.4 cm Universi ty of [facility] Body weight 2022-09-23 15:49:00 94.031 kg Universi ty of [facility] BMI 2022-09-23 15:49:00 40.49 kg/m2 Universi ty of [facility] Systolic blood 2021-09-23 14:30:00 130 mm[Hg] Univer sity of [facility] Diastolic blood 2021-09-23 14:30:00 91 mm[Hg] Unive rsity of pressure [facility] Heart rate 2021-09-23 14:29:00 80 /min Universi ty of [facility] Body temperature 2021-09-23 14:29:00 35.89 Angela [facility] ersity of [facility] Respiratory rate 2021-09-23 14:29:00 18 /min [facility] ersity of [facility] Body height 2021-09-23 14:29:00 165.1 cm Universi ty of [facility] Body weight 2021-09-23 14:29:00 93.129 kg Universi ty of [facility] BMI 2021-09-23 14:29:00 34.17 kg/m2 Universi ty of [facility] Procedures Procedure Date / Time Performed Performing Clinician Zayra e HIV 1/2 AG-AB WITH 2021-09-23 15:19:00 Iram Green [facility] ersity of [facility] PAP SMEAR-LIQUID 2021-09-23 15:19:00 Iram Greeny [facility] BASED-CP Medical Branch GALV ONLY - [place] 2021-09-23 15:19:00 [facility] Encounters Start End Encounter Admission Attending Care Care Encounter Source Date/Time Date/Time Type Type Clinicians Facility Department ID 2022-09-23 2022-09-23 Control Clerk Head [facility] UNIVERSIT [id number] Univers 10:30:00 10:45:00 Visit Toni Bullock [facility] [id number] ity of Nayeli Cordon [facility] [id number] [place] [id number] [facility] 316 Branch 2022-09-23 2022-09-23 Office EDIS Cordon [id number] Univers 09:30:00 10:22:40 Visit Nayeli Tracey [facility] [id number] ity of [place] [id number] [id number] [facility] 113 Branch 2022-09-23 2022-09-23 Outpatient R NAYELI CORDON [facility] [id number] Univers 09:30:00 10:22:40 NAYELI CORDON itcesilia of [facility] 2022-08-04 2022-08-04 Outpatient R [facility] [id number] Univers 13:45:00 13:45:00 ity of [facility] 2022-07-21 2022-07-21 [id number] Univers 14:00:00 14:00:00 TONI ity [facility] [place] 2022-07-19 2022-07-19 Telephone ELISHA GreenIT [id number] Univers 00:00:00 00:00:00 Iram Russo [facility] [id number] ity of [place] [id number] [id number] [facility] 113 Branch 2022-06-17 2022-06-17 Outpatient R UNKNOWN, [facility] [id number] Univers 10:00:00 10:00:00 ATTENDING ity of [facility] 2021-09-23 2021-09-23 Office Peter [facility] [id number] Univers 08:15:00 09:19:24 Visit Iram Russo DATA ANALYTICS ARCHITECT 350.1.13.10 ity of [facility] [id number] Rene as MATERNAL [id number] Med ical & CHILD [address] [place] [address] 2021-09-23 2021-09-23 [facility] [id number] Univers 08:15:00 09:19:24 IRAM merazcesilia [facility] 2021-09-23 2021-09-23 [facility] [id number] Univers 08:15:00 09:19:24 IRAM itcesilia [facility] 2021-09-23 2021-09-23 Orders Doctor WILLIE [id number] Univers 00:00:00 00:00:00 Only Unassigned, JUSTIN [id number] ity of [place] [facility] [id number] Rene as [id number] [address] 2021-08-05 2021-08-05 Outpatient R MINOO [facility] [id number] Univers 16:00:00 16:00:00 CASA merazcesilia couch [facility] 2021-07-02 2021-07-02 [facility] [id number] Univers 08:15:00 08:15:00 IRAM ktcesilia couch [facility] 2019-02-12 2019-02-12 Nurse Nurse, Rehan [facility] [id number] 09:38:40 09:52:43 Visit Rmchp Exp DATA ANALYTICS ARCHITECT 350.1.13.10 Cprit Obgyn REGIONAL [id number] MATERNAL [id number] & CHILD [address] [place] [address] Results Test Description Test Time Test Comments Results Result Comments Source GALV ONLY - [place] IGG/IGM 2021-09-24 17:54:17 Test Item Value Reference Range Interpretation Comme nts Syphilis IgG/IgM (test code = Non-reactive Non-reactive 86218-7) ADITYA (test code = ADITYA) Non-reactive - No serologic evidence of T. pallidum infection. Cannot exclude incubating or early syphilis. Submit a second specimen in 2-4 weeks if syphilis is clinically suspected. Equivocal - Further testing to follow. Reactive - Further testing to follow. Lab Interpretation (test code = Normal 02515-2) [facility] [place] [id number] 17:54:17 Test Item Value Reference Range Interpretation Comments Syphilis IgG/IgM (test Non-reactive Non-reactive code = 86198-6) ADITYA (test code = ADITYA) Non-reactive - No serologic evidence of T. pallidum infection. Cannot exclude incubating or early syphilis. Submit a second specimen in 2-4 weeks if syphilis is clinically suspected. Equivocal - Further testing to follow. Reactive - Further testing to follow. Lab Interpretation (test Normal code = 53524-0) [facility] 1/2 AG-AB WITH [id number] 06:15:11 Test Item Value Reference Range Interpretation Comments HIV Negative Negative Semi-quantitative (test code = 35325-8) ADITYA (test code = Non-reactive for HIV-1 ADITYA) antigen and HIV-1/HIV-2 antibodies. ?No laboratory evidence of HIV infection. ?Repeat in 2-4 weeks if acute HIV infection is suspected. [facility] 1/2 AG-AB WITH [id number] 06:15:11 Test Item Value Reference Range Interpretation Comments HIV Negative Negative Semi-quantitative (test code = 61667-3) ADITYA (test code = Non-reactive for HIV-1 ADITYA) antigen and HIV-1/HIV-2 antibodies. ?No laboratory evidence of HIV infection. ?Repeat in 2-4 weeks if acute HIV infection is suspected. [facility]
--- NOTE | 2023-01-22 21:10 | RAD REPORT ---
EXAM DESCRIPTION: [facility] [employer]01/22/2023 8:45 pm CLINICAL HISTORY: left leg pain COMPARISON: None FINDINGS: Left common femoral, superficial femoral, greater saphenous, popliteal and posterior tibi al veins are compressible and demonstrate augmentation. Doppler demonstrates good flow. Grayscale, color and spectral analysis performed on all vessels IMPRESSION: No evidence of deep venous thrombosis involving the left lower extremity.
--- NOTE | 2023-01-22 21:31 | ER ---
Nurse's Notes [facility] Name: Danitza Noguera Age: 22 yrs Sex: Female : 2000 Arrival Date: 01/22/2023 Time: 19:27 Bed 12 Private MD: Diagnosis: Localized chemosis secondary to insect bite Presentation: 01/22 19:33 Chief complaint: Patient states: My left leg is sore and it has splotches on it. It vc1 also has been swelling. This has been happening a couple of months. I made an appointment but they can't get me in for a month. Coronavirus screen: Vaccine status: Patient reports being unvaccinated. Client denies travel out of the [place] in the last 14 days. At this time, the client does not indicate any symptoms associated with coronavirus-19. Ebola Screen: Patient negative for fever greater than or equal to 101.5 degrees Fahrenheit, and additional compatible Ebola Virus Disease symptoms Patient denies exposure to infectious person. Patient denies travel to an Ebola-affected area in the 21 days before illness onset. No symptoms or risks identified at this time. Initial Sepsis Screen: Does the patient meet any 2 criteria? No. Patient's initial sepsis screen is negative. Does the patient have a suspected source of infection? No. Patient's initial sepsis screen is negative. Risk Assessment: Do you want to hurt yourself or someone else? Patient reports no desire to harm self or others. Onset of symptoms is unknown. 19:33 Method Of Arrival: Ambulatory vc1 19:33 Acuity: NORBERTO 3 vc1 Triage Assessment: 19:38 General: Appears in no apparent distress. uncomfortable, Behavior is calm, cooperative, vc1 appropriate for age. Pain: Complains of pain in medial aspect of left calf and left martel Pain does not radiate. Pain currently is 6 out of 10 on a pain scale. EENT: No deficits noted. No signs and/or symptoms were reported regarding the EENT system. Neuro: Level of Consciousness is awake, alert, obeys commands, Oriented to person, place, time, situation, Appropriate for age. Cardiovascular: No deficits noted. Respiratory: Airway is patent Respiratory effort is even, unlabored, Respiratory pattern is regular, symmetrical. GI: No deficits noted. No signs and/or symptoms were reported involving the gastrointestinal system. : No deficits noted. No signs and/or symptoms were reported regarding the genitourinary system. Derm: Reports splotches. Musculoskeletal: Reports pain in left leg. [place]: 19:38 LMP 01/09/2023 vc1 Historical: - Allergies: 19:36 No Known Allergies; vc1 - Home Meds: 19:36 phentermine oral [Active]; vc1 - PMHx: 19:36 None; vc1 - PSHx: 19:36 section; vc1 - Immunization history:: Client reports having NOT received the Covid vaccine. - Social history:: Smoking status: Patient denies any tobacco usage or history of. Screenin:37 Abuse screen: Denies threats or abuse. Nutritional screening: No deficits noted. vc1 Tuberculosis screening: No symptoms or risk factors identified. 19:45 [facility] ED Fall Risk Assessment (Adult) History of falling in the last 3 months, nj1 including since admission No falls in past 3 months (0 pts) Confusion or Disorientation No (0 pts) Intoxicated or Sedated No (0 pts) Impaired Gait No (0 pts) Mobility Assist Device Used No (0 pt) Altered Elimination No (0 pt) Score/Fall Risk Level 0 - 2 = Low Risk Oriented to surroundings, Maintained a safe environment, Hourly rounding (assess needs \T\ fall precautionary measures) done. Assessment: 19:45 Reassessment: See triage assessment. [facility] 20:50 Reassessment: Patient appears in no apparent distress at this time. No changes from [facility] previously documented assessment. Patient is alert, oriented x 3, equal unlabored respirations, skin warm/dry/pink. 21:57 Reassessment: No changes from previously documented assessment. Patient and/or family vc1 updated on plan of care and expected duration. Pain level reassessed. Patient is alert, oriented x 3, equal unlabored respirations, skin warm/dry/pink. Vital Signs: 19:33 BP 136 / 88; Pulse 72; Resp 18; Pulse Ox 100% ; Weight 96.62 kg; Height 5 ft. 6 in. ; vc1 Pain 6/10; 21:00 BP 130 / 84; Pulse 70; Resp 17; Pulse Ox 100% ; vc1 19:33 Body Mass Index 34.38 (96.62 kg, 167.64 cm) vc1 19:33 Pain Scale: Adult vc1 ED Course: 19:30 Patient arrived in ED. mr 19:36 Lokesh Lainez MD is Attending Physician. kdr 19:36 Triage completed. vc1 19:37 Arm band placed on right wrist. vc1 19:45 Patient has correct armband on for positive identification. Bed in low position. Call nj1 light in reach. 19:47 Maria Del Carmen Wright, RN is Primary Nurse. nj1 20:47 US Extremity Venous Unilateral Ltd In Process Unspecified. EDMS 20:50 Thermoregulation: warm blanket given to patient. nj1 21:57 No provider procedures requiring assistance completed. Patient did not have IV access vc1 during this emergency room visit. Administered Medications: No medications were administered Medication: 19:39 VIS not applicable for this client. vc1 Outcome: 21:31 Discharge ordered by . kdr 21:57 Discharged to home ambulatory, with family. vc1 21:57 Condition: good 21:57 Discharge instructions given to patient, Instructed on discharge instructions, follow up and referral plans. medication usage, Demonstrated understanding of instructions, follow-up care, medications, Prescriptions given X 1. 21:57 Patient left the ED. vc1 Signatures: Dispatcher [employer] EDWI Lokesh Lainez MD MD [facility] lomeli mr Essence Aaron RN RN vc1 Maria Del Carmen Wright, PADMINI RN nj1
--- NOTE | 2023-01-22 21:31 | EDPHYS ---
Physician Documentation [facility] Name: Danitza Noguera Age: 22 yrs Sex: Female : 2000 Arrival Date: 01/22/2023 Time: 19:27 Bed 12 Private MD: ED Physician Lokesh Lainez HPI: 01/22 19:51 This 22 yrs old Black Female presents to ER via Ambulatory with complaints of Leg kdr Swelling, Leg pain. 19:51 Patient has swelling began today to the distal left medial calf. Patient had similar kdr episodes before. Patient has not had any extensive work-up for this situation. She denies any fever nausea vomiting or shortness of breath. Denies chest pain.. Onset: The symptoms/episode began/occurred suddenly, this morning. Severity of symptoms: At their worst the symptoms were mild moderate just prior to arrival, in the emergency department the symptoms are unchanged. The patient has not experienced similar symptoms in the past. The patient has not recently seen a physician. [place]: 19:38 LMP 01/09/2023 vc1 Historical: - Allergies: 19:36 No Known Allergies; vc1 - Home Meds: 19:36 phentermine oral [Active]; vc1 - PMHx: 19:36 None; vc1 - PSHx: 19:36 section; vc1 - Immunization history:: Client reports having NOT received the Covid vaccine. - Social history:: Smoking status: Patient denies any tobacco usage or history of. ROS: 19:51 Constitutional: Negative for fever, chills, and weight loss, Eyes: Negative for injury, kdr pain, redness, and discharge, ENT: Negative for injury, pain, and discharge, Neck: Negative for injury, pain, and swelling, Cardiovascular: Negative for chest pain, palpitations, and edema, Respiratory: Negative for shortness of breath, cough, wheezing, and pleuritic chest pain, Abdomen/GI: Negative for abdominal pain, nausea, vomiting, diarrhea, and constipation, Back: Negative for injury and pain, : Negative for injury, bleeding, discharge, and swelling, MS/Extremity: Negative for injury and deformity, Neuro: Negative for headache, weakness, numbness, tingling, and seizure activity. Psych: Negative for depression, anxiety, suicide ideation, homicidal ideation, and hallucinations, Allergy/Immunology: Negative for hives, rash, and allergies, Endocrine: Negative for neck swelling, polydipsia, polyuria, polyphagia, and marked weight changes, Hematologic/Lymphatic: Negative for swollen nodes, abnormal bleeding, and unusual bruising. 19:51 Skin: Positive for discoloration, of the medial aspect of left calf and left medial ankle. Exam: 19:51 Constitutional: This is a well developed, well nourished patient who is awake, alert, kdr and in no acute distress. 19:51 Skin: Patient has pain and mild mottling to the distal aspect of her left calf medially. There is no cellulitis noted at this time.. Vital Signs: 19:33 BP 136 / 88; Pulse 72; Resp 18; Pulse Ox 100% ; Weight 96.62 kg; Height 5 ft. 6 in. ; vc1 Pain 6/10; 21:00 BP 130 / 84; Pulse 70; Resp 17; Pulse Ox 100% ; vc1 19:33 Body Mass Index 34.38 (96.62 kg, 167.64 cm) vc1 19:33 Pain Scale: Adult vc1 MDM: 21:31 Patient medically screened. kdr 01/23 00:15 Data reviewed: vital signs, nurses notes. kdr 01/22 19:49 Order name: Extremity Venous Unilateral Ltd; Complete Time: 21:27 kdr Administered Medications: No medications were administered Disposition Summary: 01/22/23 21:31 Discharge Ordered Location: Home kdr Problem: new kdr Symptoms: have improved kdr Condition: Stable kdr Diagnosis - Localized chemosis secondary to insect bite kdr Followup: kdr - With: Private Physician - When: 2 - 3 days - Reason: If symptoms return, Further diagnostic work-up, Recheck today's complaints, Continuance of care, Re-evaluation by your physician Discharge Instructions: - Discharge Summary Sheet kdr - Insect Bite, Adult, [id number] kdr Forms: - Medication Reconciliation Form kdr - Thank You Letter [facility] - Domain [email or web address] kdr Prescriptions: - Benadryl 25 mg Oral Capsule - take 1 capsule by ORAL route every 6 hours As needed; 30 tablet; Refills: 0, kdr Product Selection Permitted Signatures: Dispatcher [facility] EDOR Lokesh Lainez MD MD kdr Essence Aaron RN RN vc1
[2023-01-22 22:03] VITALS: O2SAT 100
[2023-01-22 22:04] VITALS: BP 130/84
== END 2023-01-22 21:57 | disposition home or self-care (01) ==
LOC: ER 19:27
DX: S80.862A Insect bite (nonvenomous), left lower leg, initial encounter (principal); R22.42 Localized swelling, mass and lump, left lower limb
CPT/HCPCS: 93971; 99283

== ENCOUNTER 2023-02-17 13:30 | Emergency (ER) | payer OTHER ==
--- OUTSIDE RECORDS SUMMARY | 2023-02-17 13:55 | XMS REPORT | Continuity of Care Document ---
:2000 Author Organization [facility] t Address [address] [place] [address] [place] [id number] Care Team Providers Name Role Phone Iram Alan Primary Care Physician TONI BULLOCK Attending Clinician Unavailable [facility] Attending Clinician Unavailable Toni Martínez Attending Clinician Nayeli Regalado Attending Clinician NAYELI CORDON Attending Clinician Unavailable Iram Alan Attending Clinician [phone] UNKNOWN, ATTENDING Attending Clinician Unavailable IRAM GREEN Attending Clinician Unavailable Doctor Unassigned, [place] Attending Clinician Unavailable CASA HENNESSY Attending Clinician Unavailable Nurse, Rehan Rmchvivi Exp [facility] Attending Clinician Unavail able Payers Payer Name Policy Type Policy Number Effective Date Expiration Date S ource Problems Condition Condition Condition Status Onset Resolution Last Treating Co mments Source Name Details Category Date Date Treatment Clinician Date Contracept Contracept Disease Active 2017- U jocy collado tobias 07-18 [place] [facility] [place] Obesity Obesity Disease Active 2018-0 Univers (BMI (BMI 8-28 ity of 30-39.9) 30-39.9) 00:00: [address] Family Family Disease Active Univers history of history of 5-29 it y of ASD ASD 00:00: [place] (atrial (atrial 00 Medical septal septal Branch defect) defect) Allergies, Adverse Reactions, Alerts Allergy Allergy Status Severity Reaction(s) Onset Inactive Treating Comm ents Source Name Type Date Date Clinician NO KNOWN Drug Active Univers ALLERGIE Class ity of S [facility] Social History Social Habit Start Date Stop Date Quantity Comments Source Exposure to 2022-09-13 2022-09-23 Not sure [facility]-CoV-2 00:00:00 09:51:00 [place] [facility] (event) [place] Tobacco use and 2022-09-23 2022-09-23 Smokeless tobacco Un iversity of exposure 00:00:00 00:00:00 non-user [facility] Alcohol intake 2022-09-23 2022-09-23 Current University of 00:00:00 00:00:00 non-drinker of [facility] alcohol (finding) [place] Sex Assigned At [birth year] Universit y of 00:00:00 00:00:00 [facility] Smoking Status Start Date Stop Date Source Never smoked tobacco [facility] Medications Ordered Filled Start Stop Current Ordering Indication Dosage Frequency Signature Comments Components Source Medication Medication Date Date Medication? Clinician (SIG) Name Name phentermine Yes 37.5mg Take 1 Un padmini 37.5 mg 2-17 tablet by ity of tablet 00:00: mouth in [place] 00 the Medical morning. Branch phentermine 2021-0 Yes 37.5mg Take 1 Un padmini 37.5 mg 2-17 tablet by ity of tablet 00:00: mouth in [place] 00 the Medical morning. Branch phentermine 2021-0 Yes 37.5mg Take 1 Un padmini 37.5 mg 2-17 tablet by ity of tablet 00:00: mouth in [place] 00 the Medical morning. Branch phentermine 2021-0 Yes 37.5mg Take 37.5 Univers 37.5 mg 2-17 mg by ity of tablet 00:00: mouth [place] 00 daily. Medical Branch phentermine 2021-0 Yes 37.5mg Take 37.5 Univers 37.5 mg 2-17 mg by ity of tablet 00:00: mouth [place] 00 daily. Medical Branch phentermine 2022-0 Yes 37.5mg Take 37.5 Univers 37.5 mg [...] 1{tbl} Take 1 U nivers -acetaminop 9-18 - tablet by it y of hen 5-325 [...] Status Comments Sour e Immunization Name Name [facility] 2019-02-12 Completed University of 00:00: [facility]9 2019-02-12 Completed University of 00:00: [facility] HPV9 2019-02-12 Completed University of 00:00: [facility] HPV9 2019-02-12 Completed University of 00:00: [facility] HPV9 2019-02-12 Completed University of 00:00: [facility] HPV9 2019-02-12 Completed University of 00:00: [facility]9 2018-05-18 Completed University of 00:00: [facility] 2018-05-18 Completed University of 00:00: [facility] 2018-05-18 Completed University of 00:00:00 [facility] HPV9 2018-05-18 Completed University of 00:00:00 [facility] HPV9 2018-05-18 Completed University of 00:00:00 [facility] HPV9 2018-05-18 Completed University of 00:00:00 [facility] HPV9 2018-04-04 Completed University of 00:00:00 [facility] HPV9 2018-04-04 Completed University of 00:00:00 [facility] HPV9 2018-04-04 Completed University of 00:00:00 [facility] HPV9 2018-04-04 Completed University of 00:00:00 [facility] HPV9 2018-04-04 Completed University of 00:00:00 [facility] HPV9 2018-04-04 Completed University of 00:00:00 [facility] TDAP 2018-01-09 Completed University of 00:00:00 [facility] TDAP 2018-01-09 Completed University of 00:00:00 [facility] TDAP 2018-01-09 Completed University of 00:00:00 [facility] TDAP 2018-01-09 Completed University of 00:00:00 [facility] TDAP 2018-01-09 Completed University of 00:00:00 [facility] TDAP 2018-01-09 Completed University of 00:00:00 [facility] DTaP, Unspecified 2004-03-30 Completed Univers ity of Formulation 00:00:00 [facility] MMR 2004-03-30 Completed University of 00:00:00 [facility] IPV 2004-03-30 Completed University of 00:00:00 [facility] DTaP, Unspecified 2004-03-30 Completed Univers ity of Formulation 00:00:00 [facility] MMR 2004-03-30 Completed University of 00:00:00 [facility] IPV 2004-03-30 Completed University of 00:00:00 [facility] DTaP, Unspecified 2004-03-30 Completed Univers ity of Formulation 00:00:00 [facility] MMR 2004-03-30 Completed University of 00:00:00 [facility] IPV 2004-03-30 Completed University of 00:00:00 [facility] DTaP, Unspecified 2001-05-09 Completed Univers ity of Formulation 00:00:00 [facility] HIB 4 Dose Schedule 2001-05-09 Completed Unive rsity of 00:00:00 [facility] IPV 2001-05-09 Completed University of 00:00:00 [facility] DTaP, Unspecified 2001-05-09 Completed Univers ity of Formulation 00:00:00 [facility] HIB 4 Dose Schedule 2001-05-09 Completed Unive rsity of 00:00:00 [facility] IPV 2001-05-09 Completed University of 00:00:00 [facility] DTaP, Unspecified 2001-05-09 Completed Univers ity of Formulation 00:00:00 [facility] HIB 4 Dose Schedule 2001-05-09 Completed Unive rsity of 00:00:00 [facility] IPV 2001-05-09 Completed University of 00:00:00 [facility] MMR 2000-11-15 Completed University of 00:00:00 [facility] Varicella 2000-11-15 Completed University of (varivax)(chicken 00:00:00 [place] [facility] edical pox) Branch MMR 2000-11-15 Completed University of 00:00:00 [facility] Varicella 2000-11-15 Completed University of (varivax)(chicken 00:00:00 [place] [facility] edical pox) Branch MMR 2000-11-15 Completed University of 00:00:00 [facility] Varicella 2000-11-15 Completed University of (varivax)(chicken 00:00:00 [place] [facility] edical pox) Branch DTaP, Unspecified 2000-07-26 Completed Univers ity of Formulation 00:00:00 [facility] Hep B, Adol or Pedi 2000-07-26 Completed Unive rsity of Dosage 00:00:00 [facility] HIB 4 Dose Schedule 2000-07-26 Completed Unive rsity of 00:00:00 [facility] DTaP, Unspecified 2000-07-26 Completed Univers ity of Formulation 00:00:00 [facility] Hep B, Adol or Pedi 2000-07-26 Completed Unive rsity of Dosage 00:00:00 [facility] HIB 4 Dose Schedule 2000-07-26 Completed Unive rsity of 00:00:00 [facility] DTaP, Unspecified 2000-07-26 Completed Univers ity of Formulation 00:00:00 [facility] Hep B, Adol or Pedi 2000-07-26 Completed Unive rsity of Dosage 00:00:00 [facility] HIB 4 Dose Schedule 2000-07-26 Completed Unive rsity of 00:00:00 [place] [facility] DTaP, Unspecified 2000-05-11 Completed Univers ity of Formulation 00:00:00 [facility] Hep B, Adol or Pedi 2000-05-11 Completed Unive rsity of Dosage 00:00:00 [facility] HIB 4 Dose Schedule 2000-05-11 Completed Unive rsity of 00:00:00 [facility] IPV 2000-05-11 Completed University of 00:00:00 [facility] DTaP, Unspecified 2000-05-11 Completed Univers ity of Formulation 00:00:00 [facility] Hep B, Adol or Pedi 2000-05-11 Completed Unive rsity of Dosage 00:00:00 [facility] HIB 4 Dose Schedule 2000-05-11 Completed Unive rsity of 00:00:00 [facility] IPV 2000-05-11 Completed University of 00:00:00 [facility] DTaP, Unspecified 2000-05-11 Completed Univers ity of Formulation 00:00:00 [facility] Hep B, Adol or Pedi 2000-05-11 Completed Unive rsity of Dosage 00:00:00 [facility] HIB 4 Dose Schedule 2000-05-11 Completed Unive rsity of 00:00:00 [facility] IPV 2000-05-11 Completed University of 00:00:00 [facility] DTaP, Unspecified 2000-01-06 Completed Univers ity of Formulation 00:00:00 [facility] Hep B, Adol or Pedi 2000-01-06 Completed Unive rsity of Dosage 00:00:00 [facility] HIB 4 Dose Schedule 2000-01-06 Completed Unive rsity of 00:00:00 [place] [facility] IPV 2000-01-06 Completed University of 00:00:00 [facility] DTaP, Unspecified 2000-01-06 Completed Univers ity of Formulation 00:00:00 [place] [facility] Hep B, Adol or Pedi 2000-01-06 Completed Unive rsity of Dosage 00:00:00 [facility] HIB 4 Dose Schedule 2000-01-06 Completed Unive rsity of 00:00:00 [place] [facility] IPV 2000-01-06 Completed University of 00:00:00 [facility] DTaP, Unspecified 2000-01-06 Completed Univers ity of Formulation 00:00:00 [place] [facility] Hep B, Adol or Pedi 2000-01-06 Completed Unive rsity of Dosage 00:00:00 [facility] HIB 4 Dose Schedule 2000-01-06 Completed Unive rsity of 00:00:00 [facility] IPV 2000-01-06 Completed University of 00:00:00 [facility] Vital Signs Vital Name Observation Time Observation Value Comments Source Systolic blood 2022-09-23 15:49:00 126 mm[Hg] Univer sity of pressure [facility] Diastolic blood 2022-09-23 15:49:00 85 mm[Hg] Unive rsity of pressure [facility] Heart rate 2022-09-23 15:49:00 84 /min Universi ty of [facility] Body temperature 2022-09-23 15:49:00 35.89 Angela Univ ersity of [facility] Respiratory rate 2022-09-23 15:49:00 18 /min Univ ersity of [facility] Body height 2022-09-23 15:49:00 152.4 cm Universi ty of [facility] Body weight 2022-09-23 15:49:00 94.031 kg Universi ty of [place] [facility] BMI 2022-09-23 15:49:00 40.49 kg/m2 Universi ty of [facility] Systolic blood 2021-09-23 14:30:00 130 mm[Hg] Univer sity of pressure [facility] Diastolic blood 2021-09-23 14:30:00 91 mm[Hg] Unive rsity of pressure [facility] Heart rate 2021-09-23 14:29:00 80 /min Universi ty of [facility] Body temperature 2021-09-23 14:29:00 35.89 Angela Univ ersity of [facility] Respiratory rate 2021-09-23 14:29:00 18 /min Univ ersity of [facility] Body height 2021-09-23 14:29:00 165.1 cm Universi ty of [place] [facility] Body weight 2021-09-23 14:29:00 93.129 kg Universi ty of [place] [facility] BMI 2021-09-23 14:29:00 34.17 kg/m2 Universi ty of [facility] Procedures Procedure Date / Time Performed Performing Clinician Sourc e HIV 1/2 AG-AB WITH 2021-09-23 15:19:00 Iram Green Univ ersity of [facility] PAP SMEAR-LIQUID 2021-09-23 15:19:00 Iram Green [facility] sity [facility] BASED-CP Medical Branch GALV ONLY - [place] 2021-09-23 15:19:00 [facility] Encounters Start End Encounter Admission Attending Care Care Encounter Source Date/Time Date/Time Type Type Clinicians Facility Department ID 2022-09-23 2022-09-23 Rig Manager [facility] UNIVERSIT [id number] Univers 10:30:00 10:45:00 Visit Toni [facility] [id number] ity of Nayeli Cordon [id number] [place] [id number] [facility] 316 Branch 2022-09-23 2022-09-23 Office EDSI Cordon [id number] Univers 09:30:00 10:22:40 Visit Nayeli Tracey [facility] [id number] ity of [id number] [id number] [facility] 113 Branch 2022-09-23 2022-09-23 Outpatient R NAYELI CORDON [facility] [id number] Univers 09:30:00 10:22:40 NAYELI CORDON [facility] 2022-08-04 2022-08-04 Outpatient R [facility] [id number] Univers 13:45:00 13:45:00 ity of [facility] 2022-07-21 2022-07-21 [facility] [id number] Univers 14:00:00 14:00:00 TONI ity [facility] 2022-07-19 2022-07-19 Telephone ELISHA GreenIT [id number] Univers 00:00:00 00:00:00 Iram Russo [facility] [id number] ity of [id number] [id number] [facility] 113 Branch 2022-06-17 2022-06-17 Outpatient R UNKNOWN, [facility] [id number] Univers 10:00:00 10:00:00 ATTENDING ity of [facility] 2021-09-23 2021-09-23 Office Peter [facility] [id number] Univers 08:15:00 09:19:24 Visit Iram Russo [employer] [employer] [id number] ity [facility] [id number] Rene as MATERNAL [id number] Med ical & CHILD [address] [place] [address] 2021-09-23 2021-09-23 Outpatient R PETER [facility] [id number] Univers 08:15:00 09:19:24 IRAM couch [facility] 2021-09-23 2021-09-23 Outpatient R ALFONZOAMERICA [facility] [id number] Univers 08:15:00 09:19:24 IRAM couch [facility] 2021-09-23 2021-09-23 Orders Doctor WILLIE [id number] Univers 00:00:00 00:00:00 Only Unassigned, JUSTIN [id number] ity of [place] [facility] [id number] [place] as [id number] [address] 2021-08-05 2021-08-05 Outpatient R MINOO, [facility] [id number] Univers 16:00:00 16:00:00 CASA couch [facility] 2021-07-02 2021-07-02 [facility] [id number] Univers 08:15:00 08:15:00 IRAM ktcesilia iza [facility] 2019-02-12 2019-02-12 Nurse Nurse, Rehan [facility] [id number] 09:38:40 09:52:43 Visit Rmchp Exp [employer] [employer] [id number] Cprit Obgyn REGIONAL [id number] MATERNAL [id number] & CHILD [address] [place] [address] Results Test Description Test Time Test Comments Results Result Comments Source GALV ONLY - [place] IGG/IGM 2021-09-24 17:54:17 Test Item Value Reference Range Interpretation Comme nts Syphilis IgG/IgM (test code = Non-reactive Non-reactive 67826-4) ADITYA (test code = ADITYA) Non-reactive - No serologic evidence of T. pallidum infection. Cannot exclude incubating or early syphilis. Submit a second specimen in 2-4 weeks if syphilis is clinically suspected. Equivocal - Further testing to follow. Reactive - Further testing to follow. Lab Interpretation (test code = Normal 34007-3) [facility] [place] [id number] 17:54:17 Test Item Value Reference Range Interpretation Comments Syphilis IgG/IgM (test Non-reactive Non-reactive code = 74777-4) ADITYA (test code = ADITYA) Non-reactive - No serologic evidence of T. pallidum infection. Cannot exclude incubating or early syphilis. Submit a second specimen in 2-4 weeks if syphilis is clinically suspected. Equivocal - Further testing to follow. Reactive - Further testing to follow. Lab Interpretation (test Normal code = 27465-1) [facility] 1/2 AG-AB WITH [id number] 06:15:11 Test Item Value Reference Range Interpretation Comments HIV Negative Negative Semi-quantitative (test code = 34743-3) ADITYA (test code = Non-reactive for HIV-1 ADITYA) antigen and HIV-1/HIV-2 antibodies. ?No laboratory evidence of HIV infection. ?Repeat in 2-4 weeks if acute HIV infection is suspected. [facility] 1/2 AG-AB WITH [id number] 06:15:11 Test Item Value Reference Range Interpretation Comments HIV Negative Negative Semi-quantitative (test code = 89178-1) ADITYA (test code = Non-reactive for HIV-1 ADITYA) antigen and HIV-1/HIV-2 antibodies. ?No laboratory evidence of HIV infection. ?Repeat in 2-4 weeks if acute HIV infection is suspected. [facility]
[2023-02-17] MEDS ORDERED: ACETAMINOPHEN 500 MG TAB ONE (14:28)
--- NOTE | 2023-02-17 14:32 | RAD REPORT ---
EXAM DESCRIPTION: RAD - Chest Pa And Lat (2 Views) - 02/17/2023 2:24 pm CLINICAL HISTORY: COUGH Chest pain. COMPARISON: Chest Pa And Lat (2 Views) dated 07/01/2018 FINDINGS: The lungs are clear. The heart is normal in size. No displaced fractures. IMPRESSION: No acute or concerning finding suspected.
--- NOTE | 2023-02-17 16:34 | ER ---
Nurse's Notes [facility] Name: Danitza Noguera Age: 22 yrs Sex: Female : 2000 Arrival Date: 02/17/2023 Time: 13:30 Bed 19 Private MD: Diagnosis: Acute bronchitis, unspecified;Chest pain on breathing;Chills (without fever) Presentation: 02/17 13:40 Chief complaint: Patient states: chest pain with sob, fever. Coronavirus screen: wa1 Vaccine status: Patient reports being unvaccinated. cough unrelated to allergies, shortness of breath. Ebola Screen: No symptoms or risks identified at this time. Initial Sepsis Screen: Does the patient meet any 2 criteria? No. Patient's initial sepsis screen is negative. Does the patient have a suspected source of infection? No. Patient's initial sepsis screen is negative. Risk Assessment: Do you want to hurt yourself or someone else? Patient reports no desire to harm self or others. Onset of symptoms was February 17, 2023. 13:40 Method Of Arrival: Ambulatory [facility] 13:40 Acuity: NORBERTO 3 wa1 Triage Assessment: 13:42 General: Appears uncomfortable, well groomed, well developed, well nourished, Behavior me1 is calm, cooperative, appropriate for age. Pain: Complains of pain in chest Pain does not radiate. Pain currently is 5 out of 10 on a pain scale. Quality of pain is described as tender, Pain began 4 hours ago. Is continuous. Neuro: Level of Consciousness is awake, alert, obeys commands, Oriented to person, place, time, situation, Appropriate for age. Cardiovascular: Capillary refill < 3 seconds Patient's skin is warm and dry. Respiratory: Respiratory effort is even, unlabored, Respiratory pattern is regular, symmetrical. MANAGER PUBLISHING: 13:42 LMP 02/09/2023 [facility] Historical: - Allergies: 13:42 No Known Allergies; me1 - PMHx: 13:42 None; me1 - PSHx: 13:42 section; me1 - Immunization history:: Adult Immunizations up to date. - Social history:: Smoking status: Patient denies any tobacco usage or history of. - Family history:: not pertinent. Assessment: 14:52 General: Appears comfortable, Behavior is calm, cooperative, appropriate for age. Pain: me1 Complains of pain in chest Pain currently is 4 out of 10 on a pain scale. Quality of pain is described as tender. Neuro: Level of Consciousness is awake, alert, obeys commands, Oriented to person, place, time, situation, Appropriate for age. Cardiovascular: Capillary refill < 3 seconds Patient's skin is warm and dry. Respiratory: Respiratory effort is even, unlabored, Respiratory pattern is regular, symmetrical. GI: Patient currently denies diarrhea, nausea, vomiting. 16:13 Reassessment: No changes from previously documented assessment. Patient and/or family me1 updated on plan of care and expected duration. Pain level reassessed. Pain: Denies pain. Vital Signs: 13:42 BP 125 / 82; Pulse 68; Resp 17; Temp 98.1(TE); Pulse Ox 100% on R/A; Weight 96.62 kg; me1 Height 5 ft. 6 in. ; Pain 5/10; 14:55 BP 117 / 76; Pulse 70; Resp 17; Pulse Ox 100% on R/A; me1 16:12 BP 136 / 78; Pulse 60; Resp 16; Pulse Ox 100% on R/A; me1 13:42 Body Mass Index 34.38 (96.62 kg, 167.64 cm) me1 13:42 Pain Scale: Adult wa1 ED Course: 13:33 Patient arrived in ED. mr 13:33 Elvira Wagner MD is Attending Physician. cp3 13:42 Triage completed. me1 13:42 Arm band placed on Patient placed in waiting room. me1 14:15 Tere Crawford, RN is Primary Nurse. ph 14:21 Chest Pa And Lat (2 Views) XRAY In Process Unspecified. EDMS 14:52 COVID-19 SARS RT PCR Sent. me1 14:52 Flu Sent. me1 14:52 RSV Sent. me1 14:52 Rapid Strep Sent. me1 16:32 Justin Carranza MD is Referral Physician. cp3 Administered Medications: 15:14 Drug: Acetaminophen PO 500 mg Route: PO; ph 16:10 Follow up: Response: No adverse reaction; Pain is decreased wa1 Outcome: 16:34 Discharge ordered by . cp3 16:48 Patient left the ED. me1 Signatures: Dispatcher [employer] EDMS Elvira Wagner, MD MD cp3 Joel, Leonor mr eTre Crawford RN RN ph Radha Ignacio RN RN me1
--- NOTE | 2023-02-17 16:34 | EDPHYS ---
Physician Documentation [facility] Name: Danitza Noguera Age: 22 yrs Sex: Female : 2000 Arrival Date: 02/17/2023 Time: 13:30 Bed 19 Private MD: ED Physician Elvira Wagner HPI: 02/17 16:23 Patient is a 22-year-old female with no significant medical past medical history who cp3 presents to the ED secondary to subjective fever at home, cough, shortness of breath which she describes as tightness when breathing, chest wall pain with inspiration. Patient denies sick contacts. Positive for sore throat, rhinorrhea. Patient without significant past medical history, surgical history, family history. No recent travel. Patient rates pain as 2 out of 10 at this time. Patient denies dyspnea on exertion no orthopnea. 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 - Social history:: Smoking status: Patient denies any tobacco usage or history of. - Family history:: not pertinent. ROS: 16:23 Constitutional: Positive for body aches, chills, fever. cp3 16:23 ENT: Positive for sore throat. 16:23 Neck: Positive for 16:23 Cardiovascular: Positive for chest pain, Negative for palpitations, paroxysmal nocturnal dyspnea. 16:23 Respiratory: Positive for cough, pleurisy, wheezing, Negative for 16:23 Abdomen/GI: Negative for abdominal pain. 16:23 Back: Negative for decreased range of motion. 16:23 Neuro: Negative for altered mental status, dizziness. 16:23 All other systems are negative. Exam: 16:27 Head/Face: Normocephalic, atraumatic. Eyes: Pupils equal round and reactive to light, cp3 extra-ocular motions intact. Lids and lashes normal. Conjunctiva and sclera are non-icteric and not injected. Cornea within normal limits. Periorbital areas with no swelling, redness, or edema. ENT: Nares patent. No nasal discharge, no septal abnormalities noted. Tympanic membranes are normal and external auditory canals are clear. Oropharynx with no redness, swelling, or masses, exudates, or evidence of obstruction, uvula midline. Mucous membranes moist. Neck: Trachea midline, no thyromegaly or masses palpated, and no cervical lymphadenopathy. Supple, full range of motion without nuchal rigidity, or vertebral point tenderness. No Meningismus. Chest/axilla: Normal chest wall appearance and motion. Nontender with no deformity. No lesions are appreciated. Cardiovascular: Regular rate and rhythm with a normal S1 and S2. No gallops, murmurs, or rubs. Normal PMI, no JVD. No pulse deficits. Abdomen/GI: Soft, non-tender, with normal bowel sounds. No distension or tympany. No guarding or rebound. No evidence of tenderness throughout. Back: No spinal tenderness. No costovertebral tenderness. Full range of motion. 16:27 Skin: Warm, dry with normal turgor. Normal color with no rashes, no lesions, and no evidence of cellulitis. MS/ Extremity: Pulses equal, no cyanosis. Neurovascular intact. Full, normal range of motion. Neuro: Awake and alert, GCS 15, oriented to person, place, time, and situation. Cranial nerves II-XII grossly intact. Motor strength 5/5 in all extremities. Sensory grossly intact. Cerebellar exam normal. Normal gait. Psych: Awake, alert, with orientation to person, place and time. Behavior, mood, and affect are within normal limits. 16:27 Constitutional: The patient appears in no acute distress, alert, awake, comfortable. 16:27 Eyes: Exam is negative for acute changes. 16:27 Respiratory: the patient does not display signs of respiratory distress, Respirations: normal, Breath sounds: are clear throughout, patient with decreased breath sounds bilaterally. Vital Signs: 13:42 BP 125 / 82; Pulse 68; Resp 17; Temp 98.1(TE); Pulse Ox 100% on R/A; Weight 96.62 kg; me1 Height 5 ft. 6 in. ; Pain 5/10; 14:55 BP 117 / 76; Pulse 70; Resp 17; Pulse Ox 100% on R/A; me1 16:12 BP 136 / 78; Pulse 60; Resp 16; Pulse Ox 100% on R/A; me1 13:42 Body Mass Index 34.38 (96.62 kg, 167.64 cm) me1 13:42 Pain Scale: Adult me1 MDM: 13:46 Patient medically screened. cp3 16:27 Differential diagnosis: The differential diagnosis includes viral illness, pneumonia, cp3 strep throat, influenza, RSV, COVID. Data reviewed: vital signs, nurses notes, lab test result(s), radiologic studies. Consideration of Admission/Observation Escalation of care including admission/observation considered. No emergent indication for hospitalization at this time. I considered the following discharge prescriptions or medication management in the emergency department Medications were administered in the Emergency Department. See MAR. Response to treatment: the patient's symptoms have worsened after treatment. 02/17 14:01 Order name: COVID-19 SARS RT PCR; Complete Time: 16:22 cp3 02/17 14:01 Order name: Flu; Complete Time: 15:15 cp3 02/17 14:01 Order name: RSV; Complete Time: 15:15 cp3 02/17 14:01 Order name: Rapid Strep cp3 02/17 15:10 Order name: Throat Culture EDMS 02/17 14:01 Order name: Chest Pa And Lat (2 Views) XRAY; Complete Time: 15:15 cp3 Administered Medications: 15:14 Drug: Acetaminophen PO 500 mg Route: PO; ph 16:10 Follow up: Response: No adverse reaction; Pain is decreased me1 Disposition Summary: 02/17/23 16:34 Discharge Ordered Location: Home cp3 Problem: new cp3 Symptoms: have improved cp3 Condition: Stable cp3 Diagnosis - Acute bronchitis, unspecified cp3 - Chest pain on breathing cp3 - Chills (without fever) cp3 Followup: cp3 - With: Justin Carranza MD - When: - Reason: Worsening of condition Discharge Instructions: - Discharge Summary Sheet cp3 - Acute Bronchitis, Adult cp3 - Nonspecific Chest Pain, Adult cp3 - Viral Respiratory Infection cp3 Forms: - Medication Reconciliation Form cp3 - Thank You Letter cp3 - Antibiotic Education cp3 - Prescription Opioid Use cp3 - Patient Portal Instructions cp3 - Work release form me1 Prescriptions: - Ibuprofen 600 mg Oral Tablet - take 1 tablet by ORAL route every 6 hours As needed take with food; 30 tablet; cp3 Refills: 0, Product Selection Permitted - levofloxacin 500 mg Oral Tablet - take 1 tablet by ORAL route once daily for 7 days; 7 tablet; Refills: 0, cp3 Product Selection Permitted Signatures: Dispatcher [employer] Elvira Garcia MD MD cp3 Tere Crawford RN RN Radha Ignacio RN RN me1
[2023-02-17 17:13] VITALS: TEMP 98.1; O2SAT 100
[2023-02-17 17:16] VITALS: BP 136/78
== END 2023-02-17 16:48 | disposition home or self-care (01) ==
LOC: ER 13:30
DX: J20.9 Acute bronchitis, unspecified (principal); R68.83 Chills (without fever); Z20.822 Contact with and (suspected) exposure to COVID-19
CPT/HCPCS: 71046; 87070; 87081; 87635; 87804; 87807; 99283

== ENCOUNTER → 2023-08-08 | Emergency (ER) | payer OTHER ==
[~2023-08-08] MED LIST: KETOROLAC 30 MG/ML INJ ONE; NA CHLORIDE 0.9% 1,000 ML ONE; ONDANSETRON 4 MG/2 ML VIAL ONE
--- OUTSIDE RECORDS SUMMARY | 2023-08-08 20:28 | XMS REPORT | Continuity of Care Document ---
Author Name Unknown Address [address] [facility] [place] [place] [address] [facility] thconnect Address [address] 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 Name Role Phone IRAM GREEN Primary Care Physician Unav TONI Underwood Attending Clinician Unavailable ANDRÉS ALTAMIRANO Attending Clinician NAYELI Lopez Attending Clinician NAYELI Hamilton Attending Clinician Tristin pina [facility] Attending Clinician Unavailable Toni Martínez Attending Clinician [phone] Peter Iram STEVEN Attending Clinician + UNKNOWN, ATTENDING Attending Clinician IRAM Lynch Attending Clinician Unavail malathi Doctor Unassigned, [place] Attending Clinician U CASA Flores Attending Clinician Rehan Fuller Rmchvivi Exp Cprit Obgyn Attending Clini kofi Unavailable Payers Payer Name Policy Type Policy Number Effective Date Expirati on Date Source [employer] [facility] [place] STAR [id number] 2021 00:00:00 Problems Condition Name Condition Details Condition Category Status Onset Date Resolution Date Last Treatment Date Treating Clinician Comments Source Contracept tobias management Contracept tobias management Disease Active 2017-07 00:00: 00 [facility] Obesity (BMI 30-39.9) Obesity (BMI 30-39.9) Disease Active 8- 00:00: 00 [facility] Family history of ASD (atrial septal defect) Family history of ASD (atrial septal defect) Disease Active 5- 00:00: 00 [facility] Allergies, Adverse Reactions, Alerts Allergy Name Allergy Type Status Severity Reaction(s) Onset Date Inactive Date Treating Clinician Comments Source NO KNOWN ALLERGIE S Drug Class Active [facility] Social History Social Habit Start Date Stop Date Quantity Comments Source Exposure to SARS-CoV-2 (event) 2022-09-13 00:00:00 2022-09-23 09:51:00 Not sure [facility] Tobacco use and exposure 2022-09-23 00:00:00 2022-09-23 00:00:00 Smokeless tobacco non-user [facility] Alcohol intake 2022-09-23 00:00:00 2022-09-23 00:00:00 Current non-drinker of alcohol (finding) [facility] Sex Assigned At 2000 00:00:00 2000 00:00:00 [facility] Smoking Status Start Date Stop Date Source Never smoked tobacco [facility] Medications Ordered Medication Name Filled Medication Name Start Date Stop Date Current Medication? Ordering Clinician Indication Dosage Frequency Signature (SIG) Comments Components Source phentermine 37.5 mg tablet 09-03 00:00: 00 Yes 37.5mg Take 1 tablet by mouth in the morning. [facility] phentermine 37.5 mg tablet 09-03 00:00: 00 Yes 37.5mg Take 1 tablet by mouth in the morning. [facility] phentermine 37.5 mg tablet 09-03 00:00: 00 Yes 37.5mg Take 1 tablet by mouth in the morning. [facility] phentermine 37.5 mg tablet 09-03 00:00: 00 Yes 37.5mg Take 37.5 mg by mouth daily. [facility] phentermine 37.5 mg tablet 09-03 00:00: 00 Yes 37.5mg Take 37.5 mg by mouth daily. [facility] phentermine 37.5 mg tablet 2-17 00:00: 00 Yes 37.5mg Take 37.5 mg by mouth daily. [facility] HYDROcodone -acetaminop hen 5-325 mg tablet 04-04 00:00: 00 09-23 00:00 :00 No 1{tbl} Take 1 tablet by mouth every 6 (six) hours as needed for Pain (scale 4-6) (If uncontroll ed by Ibuprofen) . [facility] HYDROcodone -acetaminop hen 5-325 mg tablet 04-04 00:00: 00 09-23 00:00 :00 No 1{tbl} Take 1 tablet by mouth every 6 (six) hours as needed for Pain (scale 4-6) (If uncontroll ed by Ibuprofen) . [facility] CITRANATAL 90 DHA, ALGAL OIL, 90 mg iron-1 mg -50 mg-300 mg combo pack 12-20 00:00: 00 09-23 00:00 :00 No TAKE 1 TABLET AND 1 CAPSULE BY MOUTH EVERY DAY [facility] CITRANATAL 90 DHA, ALGAL OIL, 90 mg iron-1 mg -50 mg-300 mg combo pack 6 00:00: 00 09-23 00:00 :00 No TAKE 1 TABLET AND 1 CAPSULE BY MOUTH EVERY DAY [facility] Vital Signs Vital Name Observation Time Observation Value Comments S kristal Systolic blood pressure 2022-09-23 15:49:00 126 mm[Hg] [facility] Diastolic blood pressure 2022-09-23 15:49:00 85 mm[Hg] [facility] Heart rate 2022-09-23 15:49:00 84 /min [facility] Body temperature 2022-09-23 15:49:00 35.89 Angela [facility] Respiratory rate 2022-09-23 15:49:00 18 /min [facility] Body height 2022-09-23 15:49:00 152.4 cm [facility] Body weight 2022-09-23 15:49:00 94.031 kg [facility] BMI 2022-09-23 15:49:00 40.49 kg/m2 [facility] Systolic blood pressure 2021-09-23 14:30:00 130 mm[Hg] [facility] Diastolic blood pressure 2021-09-23 14:30:00 91 mm[Hg] [facility] Heart rate 2021-09-23 14:29:00 80 /min [facility] Azlee [facility] Body temperature 2021-09-23 14:29:00 35.89 Angela [facility] Respiratory rate 2021-09-23 14:29:00 18 /min [facility] Body height 2021-09-23 14:29:00 165.1 cm [facility] Body weight 2021-09-23 14:29:00 93.129 kg [facility] BMI 2021-09-23 14:29:00 34.17 kg/m2 [facility] Procedures Procedure Date / Time Performed Performing Clinicia n Source HIV 1/2 AG-AB WITH REFLEX 2021-09-23 15:19:00 Iram Geren [facility] PAP SMEAR-LIQUID BASED-CP 2021-09-23 15:19:00 Iram Green [facility] GALV ONLY - SYPHILIS IGG/IGM 2021-09-23 15:19:00 Iram Green [facility] Encounters Start Date/Time End Date/Time Encounter Type Admission Type Attending Clinicians Care Facility Care Department Encounter ID Source 2023-06-03 12:45:00 2023-06-03 12:45:00 Outpatient NAYELI NIEVES EMILY [facility] [id number] [facility] 2022-09-23 10:30:00 2022-09-23 10:45:00 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 [id number] [facility] [id number] [facility] 2022-09-23 09:30:00 2022-09-23 10:22:40 Office Visit Nayeli Cordon [facility] 1..840.114 [id number] [facility] 2022-09-23 09:30:00 2022-09-23 10:22:40 Outpatient R NAYELI CORDON [facility] [id number] [facility] 2022-08-04 13:45:00 2022-08-04 13:45:00 Outpatient R [facility] [id number] [facility] 2022-07-21 14:00:00 2022-07-21 14:00:00 Outpatient R TONI BULLOCK [facility] [id number] [facility] 2022-07-19 00:00:00 2022-07-19 00:00:00 Telephone Iram Green [facility] 1..840.114 [id number] [facility] 2022-06-17 10:00:00 2022-06-17 10:00:00 Outpatient R LINNEA AVITIA [facility] [id number] [facility] 2021-09-23 08:15:00 2021-09-23 09:19:24 Office Visit Iram Green [facility] CHEMOTHERAPIST [facility] 1..840.114 [id number] [facility] 2021-09-23 08:15:00 2021-09-23 09:19:24 Outpatient R IRAM GREEN [facility] [id number] [facility] 2021-09-23 08:15:00 2021-09-23 09:19:24 Outpatient R IRAM GREEN [facility] [id number] [facility] 2021-09-23 00:00:00 2021-09-23 00:00:00 Orders Only Doctor Unassigned, [place] [facility] 1..840.114 [id number] [facility] 2021-08-05 16:00:00 2021-08-05 16:00:00 Outpatient R CASA HENNESSY [facility] [id number] [facility] 2021-07-02 08:15:00 2021-07-02 08:15:00 Outpatient R PETERIRAM [facility] [id number] [facility] 2019-02-12 09:38:40 2019-02-12 09:52:43 Nurse Visit Nurse, Rehan Rmchp Exp Cprit Obgyn [facility] CHEMOTHERAPIST [facility] 1..840.114 [id number] Results Test Description Test Time Test Comments Results Result Co mments Source [facility] [id number] 17:54:17* Test Item Value Reference Range Interpretation Comme nts Syphilis IgG/IgM (test code = 35357-7) Non-reactive Non-reactive ADITYA (test code = ADITYA) Non-reactive - No serologic evidence of T. pallidum infection. Cannot exclude incubating or early syphilis. Submit a second specimen in 2-4 weeks if syphilis is clinically suspected. Equivocal - Further testing to follow. Reactive - Further testing to follow. Lab Interpretation (test code = 61247-4) Normal [facility] WITH [id number] 06:15:11* Test Item Value Reference Range Interpretation Comme [facility] HIV Semi-quantitative (test code = 59222-8) Negative Negative ADITYA (test code = ADITYA) Non-reactive for HIV-1 antigen and HIV-1/HIV-2 antibodies. ?No laboratory evidence of HIV infection. ?Repeat in 2-4 weeks if acute HIV infection is suspected. [facility] WITH [id number] 06:15:11* Test Item Value Reference Range Interpretation Comme nts HIV Semi-quantitative (test code = 24820-4) Negative Negative ADITYA (test code = ADITYA) Non-reactive for HIV-1 antigen and HIV-1/HIV-2 antibodies. ?No laboratory evidence of HIV infection. ?Repeat in 2-4 weeks if acute HIV infection is suspected. [facility]
[2023-08-08 21:34] LABS: Specific Gravity 1.012 (1.005-1.030); Specific Gravity 1.013 (1.005-1.030); Urine Bilirubin NEGATIVE (Negative); Urine Blood Negative (Negative); Urine Clarity Clear (Clear); Urine Color Light-Yellow (Yellow); Urine Glucose NEGATIVE (Negative); Urine Protein NEGATIVE (Negative); Urine Urobilinogen Normal (Normal); Urine pH 6.5 (5.0-7.0)
[2023-08-08 21:51] LABS: Absolute Lymphocytes (CBC) 1.2 K/uL (0.7-4.9); Hematocrit 33.5 % (36.0-45.0); Lymphocytes % 23.5 % (15.3-44.8); MCV 87.4 fL (80-100); Platelets 366 thou/uL (152-406); RBC Red Blood Cell Count 3.84 M/uL (3.86-4.86)
[2023-08-08 21:58] LABS: Albumin 3.3 g/dL (3.4-5.0); Bilirubin Total 0.3 mg/dL (0.2-1.0); Potassium 3.4 mEq/L (3.5-5.1); Protein, Total 7.5 g/dL (6.4-8.2)
--- NOTE | 2023-08-08 23:50 | ER ---
Nurse's Notes [facility] Name: Danitza Noguera Age: 22 yrs Sex: Female : 2000 Arrival Date: 08/08/2023 Time: 20:26 Bed 10 Private MD: Diagnosis: Lower abdominal pain, unspecified;Nausea with vomiting, unspecified;Diarrhea, unspecified Presentation: 08/08 20:52 Chief complaint: Patient states: ABD PAIN,N/V/D X3 DAYS. Coronavirus screen: At this jj7 time, the client does not indicate any symptoms associated with coronavirus-19. Ebola Screen: No symptoms or risks identified at this time. Initial Sepsis Screen: Does the patient meet any 2 criteria? No. Patient's initial sepsis screen is negative. Does the patient have a suspected source of infection? No. Patient's initial sepsis screen is negative. Risk Assessment: Do you want to hurt yourself or someone else? Patient reports no desire to harm self or others. Note TOOK TYLENOL TODAY. 20:52 Method Of Arrival: Ambulatory [facility] 20:52 Acuity: NORBERTO 3 jj7 23:55 Onset of symptoms is unknown. ap3 Triage Assessment: 20:53 General: Appears in no apparent distress. comfortable, Behavior is calm, cooperative, jj7 appropriate for age. Pain: Complains of pain in suprapubic area, right lower quadrant and left lower quadrant. GI: Reports lower abdominal pain, diarrhea, nausea, vomiting. 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 - Social history:: Smoking status: Patient denies any tobacco usage or history of. Patient/guardian denies using alcohol, street drugs. Screenin:54 [facility] ED Fall Risk Assessment (Adult) History of falling in the last 3 months, jj7 including since admission No falls in past 3 months (0 pts) Confusion or Disorientation No (0 pts) Intoxicated or Sedated No (0 pts) Impaired Gait No (0 pts) Mobility Assist Device Used No (0 pt) Altered Elimination No (0 pt) Score/Fall Risk Level 0 - 2 = Low Risk Oriented to surroundings, Maintained a safe environment, Educated pt \T\ family on fall prevention, incl call for assistance when getting out of bed. Abuse screen: Denies threats or abuse. Nutritional screening: No deficits noted. Tuberculosis screening: No symptoms or risk factors identified. Assessment: 23:57 GI: Abd is soft. ap3 Vital Signs: 20:52 BP 138 / 91; Pulse 82; Resp 17; Temp 98.3; Pulse Ox 100% ; Weight 97.52 kg; Height 5 jj7 ft. 6 in. ; Pain 6/10; 23:01 BP 147 / 82; Pulse 83; ap3 20:52 Body Mass Index 34.70 (97.52 kg, 167.64 cm) j7 20:52 Pain Scale: Adult [facility] ED Course: 20:29 Patient arrived in ED. mr 20:29 Harpreet Nancy, [facility] kb 20:29 David White MD is Attending Physician. kb 20:53 Triage completed. jj7 20:53 Arm band placed on right wrist. jj7 21:33 Initial lab(s) drawn, by tx, sent to lab. Inserted saline lock: 22 gauge in right ap3 antecubital area, using aseptic technique. Blood collected. 21:33 CBC with Diff Sent. ap3 21:34 CMP Sent. ap3 21:34 Lipase Sent. ap3 22:34 Rosaura Ram, RN is Primary Nurse. ap3 23:01 CT Abd/Pelvis - IV Contrast Only In Process Unspecified. EDMS 23:55 No provider procedures requiring assistance completed. Patient did not have IV access ap3 during this emergency room visit. intact, bleeding controlled, No redness/swelling at site. Pressure dressing applied. 23:56 Patient has correct armband on for positive identification. Bed in low position. Call ap3 light in reach. Side rails up X 1. Provided Education on: discharge instructions. Administered Medications: 21:40 Drug: NS 0.9% IV 1000 ml IV at 1 bolus Per protocol; 1000 mL bolus Route: IV; Rate: 1 ap3 bolus; Site: right antecubital; 22:37 Follow up: IV Status: Completed infusion; IV Intake: 1000ml ap3 21:40 Drug: Ondansetron IVP 4 mg IVP once; over 2 minutes Route: IVP; Site: right antecubital;ap3 22:37 Follow up: Response: No adverse reaction ap3 22:37 Drug: Ketorolac IVP 15 mg IVP once Route: IVP; Site: right antecubital; ap3 23:57 Follow up: Response: No adverse reaction ap3 Medication: 23:56 VIS not applicable for this client. ap3 Intake: 22:37 IV: 1000ml; Total: 1000ml. ap3 Outcome: 23:49 Discharge ordered by MD. canchola 23:57 Discharged to home ambulatory, ap3 23:57 Condition: good 23:57 Discharge instructions given to patient, Instructed on discharge instructions, follow up and referral plans. medication usage, Demonstrated understanding of instructions, follow-up care, medications, Prescriptions given X 1, 23:58 Patient left the ED. ap3 Signatures: Dispatcher [employer] EDMS Nancy Mullins, [employer] AIRPORT SHUTTLE DRIVER-CkLeonor Cooper, [facility] Rosaura Haider RN RN ap3 Miguelina Watkins RN RN jj7
--- NOTE | 2023-08-08 23:50 | EDPHYS ---
Physician Documentation [facility] Name: Danitza Noguera Age: 22 yrs Sex: Female : 2000 Arrival Date: 08/08/2023 Time: 20:26 Bed 10 Private MD: ED Physician David White HPI: 08/08 21:15 This 22 yrs old Black Female presents to ER via Ambulatory with complaints of Abdominal kb Pain. 21:15 Pt is a 22 year old female with no medical history who presents for lower abd pain, kb nausea, vomiting and diarrhea for 3 days. Denies fever, chills. . V[employer]: 20:53 LMP 07/24/2023, unknown Historical: - Allergies: 20:53 No Known Allergies; 7 - PMHx: 20:53 None; - PSHx: 20:53 section; - Immunization history:: Adult Immunizations not immunized. - Social history:: Smoking status: Patient denies any tobacco usage or history of. Patient/guardian denies using alcohol, street drugs. ROS: 21:15 Constitutional: Negative for fever, chills, and weight loss, kb 21:15 Abdomen/GI: Positive for abdominal pain, nausea, vomiting, and diarrhea, 21:15 All other systems are negative, Exam: 21:15 Constitutional: This is a well developed, well nourished patient who is awake, alert, kb and in no acute distress. Head/Face: Normocephalic, atraumatic. ENT: Moist Mucous membranes Cardiovascular: Regular rate Respiratory: Respirations even and unlabored. No increased work of breathing. Talking in full sentences Skin: Warm, dry with normal turgor. Normal color. MS/ Extremity: Pulses equal, no cyanosis. Neurovascular intact. Full, normal range of motion. Neuro: Awake and alert, GCS 15, oriented to person, place, time, and situation. Moves all extremities. Normal gait. 21:15 Abdomen/GI: Inspection: abdomen appears normal, Bowel sounds: normal, Palpation: soft, in all quadrants, mild abdominal tenderness, in the right lower quadrant and left lower quadrant, Vital Signs: 20:52 BP 138 / 91; Pulse 82; Resp 17; Temp 98.3; Pulse Ox 100% ; Weight 97.52 kg; Height 5 jj7 ft. 6 in. ; Pain 6/10; 23:01 BP 147 / 82; Pulse 83; ap3 20:52 Body Mass Index 34.70 (97.52 kg, 167.64 cm) 7 20:52 Pain Scale: Adult jj7 MDM: 20:30 Patient medically screened. kb 21:15 Data reviewed: vital signs, nurses notes. kb 23:48 Differential diagnosis: appendicitis, diverticulitis, non-specific abd pain, urinary kb tract infection. Counseling: I had a detailed discussion with the patient and/or guardian regarding the historical points, exam findings, and any diagnostic results supporting the discharge/admit diagnosis, lab results, radiology results, the need for outpatient follow up, a family practitioner, to return to the emergency department if symptoms worsen or persist or if there are any questions or concerns that arise at home. 08/08 20:52 Order name: CBC with Diff; Complete Time: 21:56 kb 08/08 20:52 Order name: CMP; Complete Time: 22:01 kb 08/08 20:52 Order name: Lipase; Complete Time: 22:01 kb 08/08 20:52 Order name: Test, Urine; Complete Time: 21:46 kb 08/08 20:52 Order name: Urinalysis w/ reflexes; Complete Time: 21:35 kb 08/08 22:19 Order name: CT Abd/Pelvis - IV Contrast Only kb 08/08 20:52 Order name: IV Saline Lock; Complete Time: 21:33 kb 08/08 20:52 Order name: Labs collected and sent; Complete Time: 21:33 kb Administered Medications: 21:40 Drug: NS 0.9% IV 1000 ml IV at 1 bolus Per protocol; 1000 mL bolus Route: IV; Rate: 1 ap3 bolus; Site: right antecubital; 22:37 Follow up: IV Status: Completed infusion; IV Intake: 1000ml ap3 21:40 Drug: Ondansetron IVP 4 mg IVP once; over 2 minutes Route: IVP; Site: right antecubital;ap3 22:37 Follow up: Response: No adverse reaction ap3 22:37 Drug: Ketorolac IVP 15 mg IVP once Route: IVP; Site: right antecubital; ap3 23:57 Follow up: Response: No adverse reaction ap3 Disposition: 08/09 00:43 Co-signature as Attending Physician, David White MD I agree with the assessment sp4 and plan of care. I reviewed the patient's care provided by the Advanced Practice Provider and agree with the diagnosis and treatment plan. Disposition Summary: 08/08/23 23:49 Discharge Ordered Notes: Location: Home kb Condition: Stable kb Diagnosis - Lower abdominal pain, unspecified kb - Nausea with vomiting, unspecified kb - Diarrhea, unspecified kb Followup: kb - With: Emergency Department - When: As needed - Reason: Worsening of condition Followup: kb - With: Private Physician - When: 2 - 3 days - Reason: Recheck today's complaints, Continuance of care, Re-evaluation by your physician Discharge Instructions: - Discharge Summary Sheet kb - Viral Gastroenteritis, Adult, [id number] kb Forms: - Medication Reconciliation Form kb - Thank You Letter kb - Antibiotic Education kb - Prescription Opioid Use kb - Patient Portal Instructions kb - Leadership Thank You Letter kb Prescriptions: - ondansetron 4 mg Oral Tablet,disintegrating - take 1 tablet ORAL route every 6 hours As needed; 12 tablet; Refills: 0, kb Product Selection Permitted Signatures: Dispatcher [employer] EDMS Nancy Mullins, DELINEATOR-C DELINEATOR-Rosaura Lazcano RN RN ap3 Miguelina Watkins RN RN jj7 David White MD MD sp4
[2023-08-09 06:25] VITALS: BP 147/82; TEMP 98.3; O2SAT 100
--- NOTE | 2023-08-09 11:58 | RAD REPORT ---
EXAM DESCRIPTION: CT - Abdomen Pelvis W Contrast - 08/09/2023 6:50 am CLINICAL HISTORY: The patient is 22 years old and is Female; ABD PAIN TECHNIQUE: Axial computed tomography images of the abdomen and pelvis with intravenous contrast. S agittal and coronal reformatted images were created and reviewed. This CT exam was performed using one or more of the following dose reduction techniques: automated exposure control, adjustment of t he mA and/or kV according to patient size, and/or use of iterative reconstruction technique. DLP: 1147 mGy*cm COMPARISON: None. FINDINGS: LUNG BASES: Unremarkable. No mass. No consolidation. ABDOMEN: LIVER: Unremarkable. No mass. GALLBLADDER AND BILE DUCTS: Unremarkable. No calcified stones. No ductal dilation. PANCREAS: Unremarkable. No mass. No ductal dilation. SPLEEN: Unremarkable. No splenomegaly. ADRENALS: Unremarkable. No mass. KIDNEYS AND URETERS: Unremarkable. No solid mass. No hydronephrosis. STOMACH AND BOWEL: Unremarkable. No obstruction. No mucosal thickening. PELVIS: APPENDIX: The appendix is seen and is within normal limits. BLADDER: Unremarkable. No mass. REPRODUCTIVE: Unremarkable as visualized. ABDOMEN and PELVIS: INTRAPERITONEAL SPACE: Unremarkable. No free air. No significant fluid collection. BONES/JOINTS: No acute fracture. No dislocation. SOFT TISSUES: Unremarkable. VASCULATURE: Unremarkable. No abdominal aortic aneurysm. LYMPH NODES: Unremarkable. No enlarged lymph nodes. IMPRESSION: No acute abdominal or pelvic abnormality. Electronically signed by: Rickey Ireland DO 08/08/2023 11:27 PM ALARM SIGNALER Due to temporary technical issues with the PACS/Fluency reporting system, reports are being signed by the in house radiologists without review as a courtesy to insure prompt reporting. The interpreting radiologist is fully responsible for the content of the report.
== END ==
LOC: ER 20:26
DX: R10.31 Right lower quadrant pain (principal); R11.2 Nausea with vomiting, unspecified; R19.7 Diarrhea, unspecified; R10.32 Left lower quadrant pain
CPT/HCPCS: 96361; 85025; 36415; 81025; 81003; 83690; 80053; 74177; 96375; 96374; 99284; Q9967; J2405; J7030

== ENCOUNTER 2025-02-21 01:56 | Emergency (ER) | payer OTHER ==
--- OUTSIDE RECORDS SUMMARY | 2025-02-21 02:01 | XMS REPORT | Continuity of Care Document ---
Author Name Unknown Address [address] [facility] [address] [place] [address] [facility] Address [address] [facility] [place] [address] Care Team Providers Care [employer] Manager Name Role Phone Iram Alan Primary Care Physicia n Iram Alan Attending Clinician + IRAM GREEN Attending Clinician Unavail Nayeli Garcia Attending Clinician [phone] NAYELI CORDON Attending Clinician UnavailNAYELI Matt Attending Clinician Unavailjono pina [facility] Attending Clinician Unavailable TONI BULLOCK Attending Clinician Unavailable Iram Alan Attending Clinician + Doctor Unassigned, [place] Attending Clinician ANDRÉS Glass Attending Clinician Unavailyani castillo [facility] Attending Clinician Unavailable Toni Martínez Attending Clinician [phone] UNKNOWN, ATTENDING Attending Clinician Unavailab CASA Styles Attending Clinician Unavailab Rehan Chen Rmchp Exp [facility] Obgyn Attending Clini kofi Unavailable Payers Payer Name Policy Type Policy Number Effective Date Expirati on Date Source Problems Condition Name Condition Details Condition Category Status Onset Date Resolution Date Last Treatment Date Treating Clinician Comments Source Contracept tobias management Contracept tobias management Disease Active 2017-07 00:00: 00 [facility] Obesity (BMI 30-39.9) Obesity (BMI 30-39.9) Disease Active 8- 00:00: 00 [facility] Family history of ASD (atrial septal defect) Family history of ASD (atrial septal defect) Disease Active 5- 00:00: 00 [facility] Routine follow-up Routine follow-up Disease Resolve d 2017-07 00:00: 00 2018-05-18 00:00:00 2018-05-18 15:38:57 [facility] S/P S/P Disease Resolve d 04-04 00:00: 00 2018-05-18 00:00:00 2018-05-18 15:38:59 [facility] Examinatio n of participan t in clinical trial Examinatio n of participan t in clinical trial Disease Resolve d 18 00:00: 00 2018-04-25 00:00:00 2018-04-25 11:52:20 [facility] 40 weeks gestation of 40 weeks gestation of Disease Resolve d 9-16 00:00: 00 2018-04-25 00:00:00 2018-04-25 11:50:42 [facility] Group B Streptococ cus urinary tract infection affecting in third trimester Group B Streptococ cus urinary tract infection affecting in third trimester Disease Resolve d 7-12 00:00: 00 2018-04-25 00:00:00 2018-04-25 11:50:41 [facility] Sickle cell trait Sickle cell trait Disease Resolve d 6- 00:00: 00 2018-04-25 00:00:00 2018-04-25 11:50:52 [facility] Overweight (BMI 25.0-29.9) Overweight (BMI 25.0-29.9) Disease Resolve d 12-13 00:00: 00 2018-04-25 00:00:00 2018-04-25 11:50:49 [facility] Supervisio n of high risk , antepartum Supervisio n of high risk , antepartum Disease Resolve d 12-13 00:00: 00 2018-04-25 00:00:00 2018-04-25 11:50:53 [facility] Insufficie nt antepartum care Insufficie nt antepartum care Disease Resolve d 12-13 00:00: 00 2018-04-25 00:00:00 2018-04-25 11:50:48 [facility] GBS (group B streptococ cus) infection GBS (group B streptococ cus) infection Disease Resolve d 03-13 00:00: 00 2018-04-02 00:00:00 2018-04-02 23:42:30 [facility] Allergies, Adverse Reactions, Alerts Allergy Name Allergy Type Status Severity Reaction(s) Onset Date Inactive Date Treating Clinician Comments Source NO KNOWN ALLERGIE S Drug Class Active [facility] Social History Social Habit Start Date Stop Date Quantity Comments Source [facility] History of Social function 2024-02-22 00:00:00 2024-02-22 00:00:00 [facility] Alcoholic beverage intake 2024-02-22 00:00:00 2024-02-22 00:00:00 Current non-drinker of alcohol (finding) [facility] Alcohol intake 2023-08-12 00:00:00 2023-08-12 00:00:00 Current non-drinker of alcohol (finding) [facility] Exposure to SARS-CoV-2 (event) 2022-09-13 00:00:00 2022-09-23 09:51:00 Not sure [facility] Tobacco use and exposure 2022-09-23 00:00:00 2022-09-23 00:00:00 Smokeless tobacco non-user [facility] Sex assigned at 2000 00:00:00 2000 00:00:00 [facility] Smoking Status Start Date Stop Date Source Never smoked tobacco [facility] Medications Ordered Medication Name Filled Medication Name Start Date Stop Date Current Medication? Ordering Clinician Indication Dosage Frequency Signature (SIG) Comments Components Source metroNIDAZO LE 500 mg tablet 4-28 00:00: 00 Yes [id number] 500mg Take 1 tablet by mouth in the morning and 1 tablet in the evening. [facility] fluconazole (DIFLUCAN) 150 mg tablet 02-22 00:00: 00 Yes [id number] Take 1 tablet by mouth once; in 3 days if symptoms dont improve take second dose [facility] metroNIDAZO LE 500 mg tablet 02-22 00:00: 00 03-02 04:59 :00 No [id number] 500mg Take 1 tablet by mouth every 12 (twelve) hours for 7 days. [facility] phentermine 37.5 mg tablet 2-17 00:00: 00 Yes 37.5mg Take 1 tablet by mouth in the morning. [facility] HYDROcodone -acetaminop hen 5-325 mg tablet 9-18 00:00: 00 09-23 00:00 :00 No 1{tbl} Take 1 tablet by mouth every 6 (six) hours as needed for Pain (scale 4-6) (If uncontroll ed by Ibuprofen) . [facility] CITRANATAL 90 DHA, ALGAL OIL, 90 mg iron-1 mg -50 mg-300 mg combo pack 6-05 00:00: 00 09-23 00:00 :00 No TAKE 1 TABLET AND 1 CAPSULE BY MOUTH EVERY DAY [facility] Immunizations Ordered Immunization Name Filled Immunization Name Date Status Comments Source TDAP 2024-02-23 00:00:00 Completed [facility] HPV9 2024-02-23 00:00:00 Completed [facility] DTaP, Unspecified Formulation 2024-02-23 00:00:00 Completed [facility] Hep B, Adol or Pedi Dosage 2024-02-23 00:00:00 Completed [facility] HIB 4 Dose Schedule 2024-02-23 00:00:00 Completed [facility] MMR 2024-02-23 00:00:00 Completed [facility] IPV 2024-02-23 00:00:00 Completed [facility] Varicella (varivax)(chicken pox) 2024-02-23 00:00:00 Completed [facility] TDAP 2023-08-12 15:15:00 Completed [facility] Varicella (varivax)(chicken pox) 2023-08-12 15:15:00 Completed [facility] HPV9 2023-08-12 15:15:00 Completed [facility] DTaP, Unspecified Formulation 2023-08-12 15:15:00 Completed [facility] Hep B, Adol or Pedi Dosage 2023-08-12 15:15:00 Completed [facility] HIB 4 Dose Schedule 2023-08-12 15:15:00 Completed [facility] MMR 2023-08-12 15:15:00 Completed [facility] IPV 2023-08-12 15:15:00 Completed [facility] TDAP 2023-08-12 00:00:00 Completed [facility] HPV9 2023-08-12 00:00:00 Completed [facility] DTaP, Unspecified Formulation 2023-08-12 00:00:00 Completed [facility] Hep B, Adol or Pedi Dosage 2023-08-12 00:00:00 Completed [facility] HIB 4 Dose Schedule 2023-08-12 00:00:00 Completed [facility] MMR 2023-08-12 00:00:00 Completed [facility] IPV 2023-08-12 00:00:00 Completed [facility] Varicella (varivax)(chicken pox) 2023-08-12 00:00:00 Completed [facility] HPV9 2019-02-12 00:00:00 Completed [facility] HPV9 2019-02-12 00:00:00 Completed [facility] HPV9 2019-02-12 00:00:00 Completed [facility] HPV9 2019-02-12 00:00:00 Completed [facility] HPV9 2019-02-12 00:00:00 Completed [facility] HPV9 2018-05-18 00:00:00 Completed [facility] HPV9 2018-05-18 00:00:00 Completed [facility] HPV9 2018-05-18 00:00:00 Completed [facility] HPV9 2018-05-18 00:00:00 Completed HPV9 2018-05-18 00:00:00 Completed [facility] HPV9 2018-04-04 00:00:00 Completed [facility] HPV9 2018-04-04 00:00:00 Completed [facility] HPV9 2018-04-04 00:00:00 Completed [facility] HPV9 2018-04-04 00:00:00 Completed [facility] TDAP 2018-01-09 00:00:00 Completed [facility] TDAP 2018-01-09 00:00:00 Completed [facility] TDAP 2018-01-09 00:00:00 Completed [facility] TDAP 2018-01-09 00:00:00 Completed [facility] DTaP, Unspecified Formulation 2004-03-30 00:00:00 Completed [facility] MMR 2004-03-30 00:00:00 Completed [facility] IPV 2004-03-30 00:00:00 Completed [facility] DTaP, Unspecified Formulation 2004-03-30 00:00:00 Completed [facility] MMR 2004-03-30 00:00:00 Completed [facility] IPV 2004-03-30 00:00:00 Completed [facility] IPV 2004-03-30 00:00:00 Completed DTaP, Unspecified Formulation 2001-05-09 00:00:00 Completed [facility] HIB 4 Dose Schedule 2001-05-09 00:00:00 Completed [facility] IPV 2001-05-09 00:00:00 Completed [facility] DTaP, Unspecified Formulation 2001-05-09 00:00:00 Completed [facility] HIB 4 Dose Schedule 2001-05-09 00:00:00 Completed [facility] IPV 2001-05-09 00:00:00 Completed [facility] DTaP, Unspecified Formulation 2001-05-09 00:00:00 Completed HIB 4 Dose Schedule 2001-05-09 00:00:00 Completed IPV 2001-05-09 00:00:00 Completed MMR 2000-11-15 00:00:00 Completed [facility] Varicella (varivax)(chicken pox) 2000-11-15 00:00:00 Completed [facility] MMR 2000-11-15 00:00:00 Completed [facility] Varicella (varivax)(chicken pox) 2000-11-15 00:00:00 Completed [facility] MMR 2000-11-15 00:00:00 Completed DTaP, Unspecified Formulation 2000-07-26 00:00:00 Completed [facility] Hep B, Adol or Pedi Dosage 2000-07-26 00:00:00 Completed [facility] HIB 4 Dose Schedule 2000-07-26 00:00:00 Completed [facility] DTaP, Unspecified Formulation 2000-07-26 00:00:00 Completed [facility] Hep B, Adol or Pedi Dosage 2000-07-26 00:00:00 Completed [facility] HIB 4 Dose Schedule 2000-07-26 00:00:00 Completed [facility] DTaP, Unspecified Formulation 2000-07-26 00:00:00 Completed HIB 4 Dose Schedule 2000-07-26 00:00:00 Completed DTaP, Unspecified Formulation 2000-05-11 00:00:00 Completed [facility] Hep B, Adol or Pedi Dosage 2000-05-11 00:00:00 Completed [facility] HIB 4 Dose Schedule 2000-05-11 00:00:00 Completed [facility] IPV 2000-05-11 00:00:00 Completed [facility] DTaP, Unspecified Formulation 2000-05-11 00:00:00 Completed [facility] Hep B, Adol or Pedi Dosage 2000-05-11 00:00:00 Completed [facility] HIB 4 Dose Schedule 2000-05-11 00:00:00 Completed [facility] IPV 2000-05-11 00:00:00 Completed [facility] DTaP, Unspecified Formulation 2000-05-11 00:00:00 Completed Hep B, Adol or Pedi Dosage 2000-05-11 00:00:00 Completed IPV 2000-05-11 00:00:00 Completed DTaP, Unspecified Formulation 2000-01-06 00:00:00 Completed [facility] Hep B, Adol or Pedi Dosage 2000-01-06 00:00:00 Completed [facility] HIB 4 Dose Schedule 2000-01-06 00:00:00 Completed [facility] IPV 2000-01-06 00:00:00 Completed [facility] DTaP, Unspecified Formulation 2000-01-06 00:00:00 Completed [facility] Hep B, Adol or Pedi Dosage 2000-01-06 00:00:00 Completed [facility] HIB 4 Dose Schedule 2000-01-06 00:00:00 Completed [facility] IPV 2000-01-06 00:00:00 Completed [facility] DTaP, Unspecified Formulation 2000-01-06 00:00:00 Completed Hep B, Adol or Pedi Dosage 2000-01-06 00:00:00 Completed HIB 4 Dose Schedule 2000-01-06 00:00:00 Completed Vital Signs Vital Name Observation Time Observation Value Comments S ource Systolic blood pressure 2024-11-08 15:30:00 121 mm[Hg] [facility] Diastolic blood pressure 2024-11-08 15:30:00 88 mm[Hg] [facility] Heart rate 2024-11-08 15:30:00 81 /min [facility] Body temperature 2024-11-08 15:30:00 36.72 Angela [facility] Respiratory rate 2024-11-08 15:30:00 17 /min [facility] Body height 2024-11-08 15:30:00 165.1 cm [facility] Body weight 2024-11-08 15:30:00 104.599 kg [facility] BMI 2024-11-08 15:30:00 38.37 kg/m2 [facility] Systolic blood pressure 2024-09-12 19:16:00 128 mm[Hg] [facility] Diastolic blood pressure 2024-09-12 19:16:00 78 mm[Hg] [facility] Heart rate 2024-09-12 19:16:00 87 /[facility] Body temperature 2024-09-12 19:16:00 36.5 Angela [facility] Respiratory rate 2024-09-12 19:16:00 19 /min [facility] Body height 2024-09-12 19:16:00 165.1 cm [facility] Body weight 2024-09-12 19:16:00 105.28 kg [facility] BMI 2024-09-12 19:16:00 38.62 kg/m2 [facility] Systolic blood pressure 2024-02-21 20:36:00 125 mm[Hg] [facility] Diastolic blood pressure 2024-02-21 20:36:00 84 mm[Hg] [facility] Heart rate 2024-02-21 20:36:00 67 /min [facility] Body temperature 2024-02-21 20:36:00 36.17 Angela [facility] Respiratory rate 2024-02-21 20:36:00 20 /min [facility] Body height 2024-02-21 20:36:00 165.1 cm [facility] Body weight 2024-02-21 20:36:00 102.014 kg [facility] BMI 2024-02-21 20:36:00 37.43 kg/m2 [facility] Oxygen saturation in Arterial blood by Pulse oximetry 2024-02-21 20:36:00 100 /min [facility] Systolic blood pressure 2023-08-12 21:37:00 137 mm[Hg] [facility] Diastolic blood pressure 2023-08-12 21:37:00 88 mm[Hg] [facility] Heart rate 2023-08-12 21:37:00 78 /min Un[facility] Body temperature 2023-08-12 21:37:00 36.28 Angela [facility] Respiratory rate 2023-08-12 21:37:00 18 /min [facility] Body height 2023-08-12 21:37:00 152.4 cm [facility] Body weight 2023-08-12 21:37:00 96.163 kg [facility] BMI 2023-08-12 21:37:00 41.40 kg/m2 [facility] Systolic blood pressure 2022-09-23 15:49:00 126 mm[Hg] [facility] Diastolic blood pressure 2022-09-23 15:49:00 85 mm[Hg] [facility] Heart rate 2022-09-23 15:49:00 84 /min [facility] Body temperature 2022-09-23 15:49:00 35.89 Angela [facility] Respiratory rate 2022-09-23 15:49:00 18 /min [facility] Body height 2022-09-23 15:49:00 152.4 cm [facility] Body weight 2022-09-23 15:49:00 94.031 kg [facility] BMI 2022-09-23 15:49:00 40.49 kg/m2 [facility] Systolic blood pressure 2021-09-23 14:30:00 130 mm[Hg] [facility] Diastolic blood pressure 2021-09-23 14:30:00 91 mm[Hg] [facility] Heart rate 2021-09-23 14:29:00 80 /min [facility] Body temperature 2021-09-23 14:29:00 35.89 Angela [facility] Respiratory rate 2021-09-23 14:29:00 18 /min [facility] Body height 2021-09-23 14:29:00 165.1 cm [facility] Body weight 2021-09-23 14:29:00 93.129 kg [facility] BMI 2021-09-23 14:29:00 34.17 kg/m2 [facility] Procedures Procedure Date / Time Performed Performing Clinicia n Source POCT TEST 2023-08-12 22:14:00 Salazar Green [facility] ASSIGNMENT OF BENEFITS 2023-08-12 21:27:56 Docto r Unassigned, [place] [facility] HIV 1/2 AG-AB WITH REFLEX 2021-09-23 15:19:00 Iram Green [facility] PAP SMEAR-LIQUID BASED-CP 2021-09-23 15:19:00 Iram Green [facility] GALV ONLY - SYPHILIS IGG/IGM 2021-09-23 15:19:00 Iram Green [facility] Encounters Start Date/Time End Date/Time Encounter Type Admission Type Attending [facility] Facility Care Department Encounter ID Source 2024-11-12 00:00:00 2024-11-13 09:11:43 Telephone Iram Green [facility] ENGINEER [facility] 1.840.114 350.1.13.10 4.2.7.2.686 [id number] [facility] 2024-11-08 10:00:00 2024-11-08 11:30:09 Outpatient R IRAM GREEN [facility] [id number] [facility] 2024-11-08 10:00:00 2024-11-08 11:30:09 Office Visit Iram Green [facility] [employer] [employer] [facility] 1.840.114 350.1.13.10 4.2.7.2.686 [id number] [facility] 2024-09-12 12:45:00 2024-09-12 13:47:40 Office Visit Iram Green [facility] 1.840.114 350.1.13.10 4.2.7.2.686 [id number] [facility] 2024-09-12 12:45:00 2024-09-12 13:47:40 Outpatient R IRAM GREEN [facility] [id number] [facility] 2024-02-23 00:00:00 2024-02-23 07:36:14 Patient Secure Nayeli De Dios [facility] 1..840.114 350.1.13.10 4.2.7.2.686 [id number] [facility] 2024-02-21 15:00:00 2024-02-21 16:25:06 Outpatient NAYELI NIEVES EMILY [facility] [id number] [facility] 2024-02-21 15:00:00 2024-02-21 16:25:06 Office Visit Nayeli Cordon [facility] 1..114 350.1.13.10 4.2.7.2.686 [id number] [facility] 2024-02-21 13:00:00 2024-02-21 13:15:00 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 [facility] Nayeli Cordon [facility] 1.84.114 350.1.13.10 4.2.7.2.686 [id number] [facility] 2023-10-11 08:15:00 2023-10-11 08:15:00 Outpatient R NAYELI CORDON [facility] [id number] [facility] 2023-09-29 07:00:00 2023-09-29 07:00:00 Outpatient NAYELI NIEVES [facility] [id number] [facility] 2023-09-26 09:15:00 2023-09-26 09:15:00 Outpatient TONI COLBERT [facility] [id number] [facility] 2023-08-12 15:15:00 2023-08-12 16:12:30 Outpatient IRAM PALACIO [facility] [id number] [facility] 2023-08-12 15:15:00 2023-08-12 16:12:30 Office Visit Iram Green [facility] 1.840.114 350.1.13.10 4.2.7.2.686 [id number] [facility] 2023-08-12 00:00:00 2023-08-12 00:00:00 Orders Only Doctor Unassigned, [place] [facility] 1.840.114 350.1.13.10 4.2.7.2.686 [id number] [facility] 2023-06-03 12:45:00 2023-06-03 12:45:00 Outpatient NAYELI NIEVES [facility] [id number] [facility] 2022-09-23 10:30:00 2022-09-23 10:45:00 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 [facility] Toni Bullock [facility] 1.840.114 350.1.13.10 4.2.7.2.686 [id number] [facility] 2022-09-23 09:30:00 2022-09-23 10:22:40 Office Visit Nayeli Cordon [facility] 1.0.114 350.1.13.10 4.2.7.2.686 [id number] [facility] 2022-09-23 09:30:00 2022-09-23 10:22:40 Outpatient R NAYELI CORDON [facility] [id number] [facility] 2022-08-04 13:45:00 2022-08-04 13:45:00 Outpatient R [facility] [id number] [facility] 2022-07-21 14:00:00 2022-07-21 14:00:00 Outpatient TONI COLBERT [facility] [id number] [facility] 2022-07-19 00:00:00 2022-07-19 00:00:00 Telephone Iram Green [facility] 1..114 350.1.13.10 4.2.7.2.686 [id number] [facility] 2022-06-17 10:00:00 2022-06-17 10:00:00 Outpatient R ADORE, LINNEA [facility] [id number] [facility] 2021-09-23 08:15:00 2021-09-23 09:19:24 Office Visit Iram Green [facility] ..114 350.1.13.10 4.2.7.2.686 [id number] [facility] 2021-09-23 08:15:00 2021-09-23 09:19:24 Outpatient R IRAM GREEN [facility] [id number] [facility] 2021-09-23 08:15:00 2021-09-23 09:19:24 Outpatient R IRAM GREEN [facility] [id number] [facility] 2021-09-23 00:00:00 2021-09-23 00:00:00 Orders Only Doctor Unassigned, [place] [facility] .114 350.1.13.10 4.2.7.2.686 [id number] [facility] 2021-08-05 16:00:00 2021-08-05 16:00:00 Outpatient R CASA HENNESSY [facility] [id number] [facility] 2021-07-02 08:15:00 2021-07-02 08:15:00 Outpatient R IRAM GREEN [facility] [id number] [facility] 2019-02-12 09:38:40 2019-02-12 09:52:43 Nurse Visit Nurse, Rehan Rmchp Exp Cprit Obgyn [facility] PLANT ENGINEER [facility] ..114 350.1.13.10 4.2.7.2.686 [id number] Results Test Description Test Time Test Comments Results Result Co mments Source [facility] [id number] 22:15:00* Test Item Value Reference Range Interpretation Comme nts POCT PREG (test code = 1605) Negative On board controls acceptable with C Line (test code = 3574) Yes POCT PREG LOT # (test code = 3575) POCT PREG TEST DATE ( test code = 3576) [facility] ONLY - SYPHILIS [id number] 17:54:17* Test Item Value Reference Range Interpretation Comme nts Syphilis IgG/IgM (test code = 93550-5) Non-reactive Non-reactive ADITYA (test code = ADITYA) Non-reactive - No serologic evidence of T. pallidum infection. Cannot exclude incubating or early syphilis. Submit a second specimen in 2-4 weeks if syphilis is clinically suspected. Equivocal - Further testing to follow. Reactive - Further testing to follow. Lab Interpretation (test code = 94823-4) Normal [facility] ONLY - SYPHILIS [id number] 17:54:17* Test Item Value Reference Range Interpretation Comme nts Syphilis IgG/IgM (test code = 98869-0) Non-reactive Non-reactive ADITYA (test code = ADITYA) Non-reactive - No serologic evidence of T. pallidum infection. Cannot exclude incubating or early syphilis. Submit a second specimen in 2-4 weeks if syphilis is clinically suspected. Equivocal - Further testing to follow. Reactive - Further testing to follow. Lab Interpretation (test code = 25287-3) Normal [facility] 1/2 AG-AB WITH [id number] 06:15:11* Test Item Value Reference Range Interpretation Comme nts HIV Semi-quantitative (test code = 03588-1) Negative Negative ADITYA (test code = ADITYA) Non-reactive for HIV-1 antigen and HIV-1/HIV-2 antibodies. ?No laboratory evidence of HIV infection. ?Repeat in 2-4 weeks if acute HIV infection is suspected. [facility] 1/2 AG-AB WITH [id number] 06:15:11* Test Item Value Reference Range Interpretation Comme nts HIV Semi-quantitative (test code = 72359-4) Negative Negative ADITYA (test code = ADITYA) Non-reactive for HIV-1 antigen and HIV-1/HIV-2 antibodies. ?No laboratory evidence of HIV infection. ?Repeat in 2-4 weeks if acute HIV infection is suspected. [facility] Notes Date/Time Note Provider Source 2024-11-13 09:10:33 Patient informed of results and new orders, verbalized understanding. T [facility] 2024-11-12 16:42:36 Please notify the patient her labs are indicative of BV, meds have been sent to her pharmacy on file. Please have her complete the entire course as prescribed. LEIGHANN Gutierrez 11/12/2024 4:42 PM T [facility] 2024-02-21 13:00:00 Images from the original note were not included. Venipuncture collection performed by clean technique on the right anticubitus. Total of 1 attempts were made. Slight pressure and a bandage/dressing were applied to the site(s). The patient experienced no complications. The following specimens were processed according to instructions and sent to [facility] laboratories per lab order on 02/21/2024 : LT BLUE SST 2 RED LAV 2 PPT DK GREEN (LiHep) DK GREEN (SodH) MCLEOD DK BLUE (K2) DK BLUE (S) ACD Blood Culture NIPT/NTD T [facility]
--- NOTE | 2025-02-21 02:18 | ER ---
Nurse's Notes [facility] Name: Danitza Noguera Age: 24 yrs Sex: Female : 2000 Arrival Date: 02/21/2025 Time: 01:56 Bed 5 Private MD: Diagnosis: Foreign body in right ear Presentation: 02/21 02:10 Chief complaint: Patient states: FEELS LIKE SOMETHING IS IN RIGHT EAR SINCE LAST br2 TUESDAY. Coronavirus screen: Client denies travel out of the [place] in the last 14 days. Ebola Screen: Patient denies exposure to infectious person. Initial Sepsis Screen: Does the patient meet any 2 criteria? No. Patient's initial sepsis screen is negative. Does the patient have a suspected source of infection? No. Patient's initial sepsis screen is negative. Risk Assessment: Do you want to hurt yourself or someone else? Patient reports no desire to harm self or others. Onset of symptoms was February 14, 2025. 02:10 Method Of Arrival: Ambulatory br2 02:10 Acuity: NORBERTO 3 br2 Triage Assessment: 02:10 General: Appears in no apparent distress. uncomfortable, Behavior is calm, cooperative. br2 Pain: Complains of pain in right ear canal Pain currently is 2 out of 10 on a pain scale. 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 - Infectious Disease History:: Denies. - Family history:: not pertinent. - Hospitalizations: : No recent hospitalization is reported. - Social history:: Smoking status: unknown. Screenin:16 [facility] ED Fall Risk Assessment (Adult) History of falling in the last 3 months, bm8 including since admission No falls in past 3 months (0 pts) Confusion or Disorientation No (0 pts) Intoxicated or Sedated No (0 pts) Impaired Gait No (0 pts) Mobility Assist Device Used Altered Elimination No (0 pt) Score/Fall Risk Level 0 - 2 = Low Risk Oriented to surroundings, Maintained a safe environment, Educated pt \T\ family on fall prevention, incl call for assistance when getting out of bed, Assessed \T\ reinforced patient's understanding of fall precautions, Hourly rounding (assess needs \T\ fall precautionary measures) done, Used ambulatory aids as needed (educated on \T\ assisted with), Used gait belt as appropriate. Abuse screen: Denies threats or abuse. Nutritional screening: No deficits noted. Tuberculosis screening: No symptoms or risk factors identified. Assessment: 02:15 General: Appears in no apparent distress. uncomfortable, Behavior is calm, cooperative, bm8 appropriate for age. Pain: Complains of pain in right ear. Neuro: No deficits noted. Level of Consciousness is awake, alert, obeys commands, Oriented to person, place, time, situation, Appropriate for age. Cardiovascular: No deficits noted. Respiratory: No deficits noted. GI: No deficits noted. : No deficits noted. EENT: Reports pain in right ear pt has FB in right ear canal. Derm: No deficits noted. Musculoskeletal: No deficits noted. Vital Signs: 02:10 BP 148 / 102; Pulse 72; Resp 18; Temp 96.7(O); Pulse Ox 100% on R/A; Weight 104.33 kg; br2 Height 5 ft. 5 in. ; Pain 2/10; 02:10 Body Mass Index 38.27 (104.33 kg, 165.1 cm) br2 02:10 Pain Scale: Adult br2 Dalton Coma Score: 02:16 Eye Response: spontaneous(4). Motor Response: obeys commands(6). Verbal Response: bm8 oriented(5). Total: 15. ED Course: 02:00 Patient arrived in ED. gm2 02:01 Cal Aldana MD is Attending Physician. rn 02:10 Arm band placed on right wrist. br2 02:14 Wilfredo Simons RN is Primary Nurse. bm8 02:16 Patient has correct armband on for positive identification. Call light in reach. Side bm8 rails up X 1. Client placed on continuous cardiac and pulse oximetry monitoring. NIBP monitoring applied. Pulse ox on. NIBP on. Door closed. Noise minimized. Warm blanket given. Pillow given. Verbal reassurance given. Head of bed elevated. 02:16 No provider procedures requiring assistance completed. Patient did not have IV access bm8 during this emergency room visit. 02:18 Triage completed. br2 02:28 Provided Education on: post er care. bm8 Administered Medications: No medications were administered Medication: 02:16 VIS not applicable for this client. bm8 Outcome: :18 Discharge ordered by . rn 02:28 Discharged to home ambulatory, with family, bm8 02:28 Condition: stable 02:28 Discharge instructions given to patient, family, Instructed on discharge instructions, follow up and referral plans. no drinking with medication, no driving heavy equipment, medication usage, safety practices, Demonstrated understanding of instructions, follow-up care, medications, :28 Patient left the ED. bm8 Signatures: Cal Aldana MD MD rn Mitchell, Ginger 2 Wilfredo Simons RN RN bm8 Gloria Casarez RN RN br2 Corrections: (The following items were deleted from the chart) 02:16 02:16 Home Meds: Unable to obtain; bm8 bm8
--- NOTE | 2025-02-21 02:18 | EDPHYS ---
Physician Documentation [facility] Name: Danitza Noguera Age: 24 yrs Sex: Female : 2000 Arrival Date: 02/21/2025 Time: 01:56 Bed 5 Private MD: ED Physician Cal Aldana HPI: 02/21 02:16 This 24 yrs old Black Female presents to ER via Unassigned with complaints of Ear Pain. rn 02:16 The patient presents with a foreign body sensation. Patient reports foreign body rn sensation in right ear. Reports muffled hearing and discomfort in right ear. No fever or runny nose or sore throat.. 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 - Infectious Disease History:: Denies. - Family history:: not pertinent. - Hospitalizations: : No recent hospitalization is reported. - Social history:: Smoking status: unknown. ROS: 02:16 ENT: Positive for right ear foreign body sensation rn Exam: 02:16 Constitutional: This is a well developed, well nourished patient who is awake, alert, rn and in no acute distress. ENT: Hearing lodged in right auditory canal. No evidence of TM perforation or signs of infection. Vital Signs: 02:10 BP 148 / 102; Pulse 72; Resp 18; Temp 96.7(O); Pulse Ox 100% on R/A; Weight 104.33 kg; br2 Height 5 ft. 5 in. ; Pain 2/10; 02:10 Body Mass Index 38.27 (104.33 kg, 165.1 cm) br2 02:10 Pain Scale: Adult br2 Ariana Coma Score: 02:16 Eye Response: spontaneous(4). Motor Response: obeys commands(6). Verbal Response: bm8 oriented(5). Total: 15. Procedures: 02:16 Foreign Body Removal: Ear ring, from the right ear canal, by using alligator clamps, rn The patient tolerated the removal well. MDM: 02:01 Medical Screening Exam initiated rn 02:16 Differential diagnosis: foreign body. Data reviewed: vital signs, nurses notes, and as rn a result, I will discharge patient. Counseling: I had a detailed discussion with the patient and/or guardian regarding the historical points, exam findings, and any diagnostic results supporting the discharge/admit diagnosis, the need for outpatient follow up, to return to the emergency department if symptoms worsen or persist or if there are any questions or concerns that arise at home. Special discussion: I discussed with the patient/guardian in detail that at this point there is no indication for admission to the hospital. It is understood, however, that if the symptoms persist or worsen the patient needs to return immediately for re-evaluation. Administered Medications: No medications were administered Disposition Summary: 02/21/25 02:18 Discharge Ordered Notes: Location: Home rn Problem: new rn Symptoms: have improved rn Condition: Stable rn Diagnosis - Foreign body in right ear rn Followup: rn - With: Private Physician - When: As needed - Reason: Recheck today's complaints, Re-evaluation by your physician Discharge Instructions: - Discharge Summary Sheet rn - Ear Foreign Body rn Forms: - Medication Reconciliation Form rn - Antibiotic rn obgyn - Prescription Opioid Use rn - Patient Portal Instructions rn - Leadership Thank You Letter rn Signatures: Cal Aldana MD MD rn McDonald, Brad, RN RN bm8 Corrections: (The following items were deleted from the chart) 02:16 02:16 Home Meds: Unable to obtain; bm8 bm8
[2025-02-21 02:35] VITALS: BP 148/102; TEMP 96.7; O2SAT 100
== END 2025-02-21 02:28 | disposition home or self-care (01) ==
LOC: ER 01:56
DX: T16.1XXA Foreign body in right ear, initial encounter (principal)
CPT/HCPCS: 99283